=== PATIENT | female | born 1945 | race Caucasian/White ===

== ENCOUNTER 2018-05-23 13:51 | Inpatient (IN) ==
--- NOTE | 2018-05-23 14:05 | ED ---
HPI General Chief Complaint: Neuro Symptoms/Deficit Stated Complaint: medical Time Seen by Provider: 05/23/18 13:52 Source: patient and family Mode of arrival: wheelchair Limitations: language barrier (aphasia, dysarthria) History of Present Illness HPI Narrative: 72-year-old female that presents to the ED for evaluation of possible stroke. Per patient and who provides most of the information less than 20 minutes before coming patient was complaining that she was having a "migraine" and did not feel right so she went to the bathroom. Apparently when she was in the bathroom she had trouble getting her pants and underwear off and could not do it on her own. She called for her for assistance in her 's are noted that she was having trouble speaking and she had a little difficulty using her hands. He took her here for get evaluated as there were concerned for stroke. Per patient she does not have any history of CVA in the past. She does have a history of kidney disease stage II as well as a history of high blood pressure. She does take Plavix. She denies any trauma or injury. Per symptoms started 20 minutes ago. She denies any history of this in the past. No recent travel. No allergies to medication. Patient herself is somewhat hard to assess as she does appear to have bad aphasia and dysarthria and has difficulty speaking. She does appear to be somewhat drowsy as well. Related Data Home Medications Medication Instructions Recorded Confirmed amlodipine 2.5 mg PO DAILY 05/23/18 05/23/18 amlodipine 5 mg PO HS 05/23/18 05/23/18 atorvastatin 20 mg PO HS 05/23/18 05/23/18 cholecalciferol (vitamin D3) 2,000 unit PO DAILY 05/23/18 05/23/18 [Vitamin D3] clopidogrel 75 mg PO DAILY 05/23/18 05/23/18 cyanocobalamin (vitamin B-12) 1,000 mcg PO DAILY 05/23/18 05/23/18 [Vitamin B-12] lisinopril 40 mg PO DAILY 05/23/18 05/23/18 Allergies Allergy/AdvReac Type Severity Reaction Status Date / Time alteplase [From Activase] Allergy Severe Swelling Verified 05/25/18 12:21 of Lip/Tongue/Throat Iodinated Contrast- Oral and Allergy Severe Swelling Verified 05/25/18 12:21 IV Dye of [Contrast] Lip/Tongue/Throat Review of Systems ROS: all other systems reviewed are negative [facility] History History Provided By: Patient and Family Member Medical History Medical History CAD (coronary artery disease) (Acute) HTN (hypertension) (Acute) Hard of hearing (Acute) Hypercholesterolemia (Acute) Social History Social History Substance History: No History of Abuse Second Hand Smoke Exposure: Yes Smoking Status: Current every day smoker Tobacco Type: Cigarettes How Often Do You Have a Drink Containing Alcohol: 2 to 3 times a week Recent Travel in [facility] within the Last 8 Weeks: Yes Recent Out of Country Travel within the Last 8 Weeks: No Exam Narrative Exam Narrative: GENERAL: Drowsy but well-groomed SKIN: Focused skin assessment warm/dry. HEAD: Atraumatic. Normocephalic. EYES: Pupils equal and round 4 mm reactive to light and accommodation. No scleral icterus. No injection or drainage. ENT: No nasal bleeding or discharge. Mucous membranes pink and moist. Tongue appears to be midline. No uvula deviation. NECK: Trachea midline. No JVD. CARDIOVASCULAR: Regular rate and rhythm. No murmur appreciated. RESPIRATORY: No accessory muscle use. Clear to auscultation. Breath sounds equal bilaterally. GASTROINTESTINAL: Abdomen soft, non-tender, nondistended. Hepatic and splenic margins not palpable. MUSCULOSKELETAL: No obvious deformities. No clubbing. No cyanosis. No edema. Full range of motion of the upper and lower extremities bilaterally. 2+ pulses bilaterally. Patient does have what appears to be drift on the right side with very slight weakness compared to the left on the right compared to the left. Finger to nose status appears to be intact. No obvious facial droop noted. No lumbar, thoracic, cervical spine tenderness to palpation. NEUROLOGICAL: Awake and alert and oriented 4. No obvious cranial nerve deficits. Motor grossly within normal limits. Slurred speech with expressive aphasia. PSYCHIATRIC: Appropriate mood and affect; insight and judgment normal. Procedures Intubation Time Out Performed: No Sedative: etomidate Mg Given: 20 Paralytic: succinylcholine Mg Given: 100 Laryngoscope: fiber optic video scope (CMAC-4) ET Tube Size: 8 ET Tube Uncuffed: Yes Patient Tolerated Procedure: other (Bleeding, Traumatic intubation.) Intubation Complications: difficult intubation and hypoxia Additional Comments: I Dr. Medina was called by Dr. Espinal orders to assist in a critical airway. This is a 72-year-old female who is received TPA, IV contrast today as part of a stroke workup. I arrived P find the patient being bag valve mask by Dr. Qiu and respiratory with a saturation in the mid 40s peer. She was able to be [id number] back up to 90 prior to my intubation attempt. Her tongue is massively swollen protruding through her mouth, glide scope was inserted, her arytenoids were also swollen, she had some subglottal swelling as well. With a maximum amount of effort an ET tube was able to be slid past her tongue, and it was visualized going through the vocal cords by myself and Dr. rosado on glide scope monitoring. She did have some bleeding afterwards and has already received a bolus dose of TPA today. Patient also prior to Intubation was given Versed 2 mg IV and morphine 4 mg IV. All these medications were given by Dr. espinal. Course Reevaluation(s) Reevaluation #1: The patient has suddenly developed swelling of the right. I have ordered Benadryl, Pepcid and Decadron. Time: 15:32 Reevaluation #2: The swelling on the right side of her tongue has become acutely worse and is threatening to completely occlude her airway. The decision was made to proceed with a semi-elective intubation. The patient was aware of the plan and was in agreement. Her was at the bedside when we were discussing airway management. Of note, the patient's right-sided weakness seem to be improved prior to giving her RSI medications. Time: 16:49 Initial Documented Vital Signs Temperature 97.5 F L 05/23/18 13:56 Pulse Rate 75 05/23/18 13:56 Respiratory Rate 21 05/23/18 13:56 Blood Pressure 174/97 H 05/23/18 13:56 Pulse Oximetry 98 05/23/18 13:56 Last Documented Vital Signs Temperature 98.3 F 05/25/18 08:00 Pulse Rate 72 05/25/18 10:00 Respiratory Rate 15 05/25/18 11:50 Blood Pressure 183/77 H 05/25/18 08:00 Pulse Oximetry 98 05/25/18 11:50 Critical Care Time Critical Care Time: Yes Total Critical Care Time: 60 Attestation: Time to perform other separately billable procedures was not included in the critical care time. My time did not include minutes spent treating any other patients simultaneously or on activities that did not directly contribute to the patient's treatment. The services I provided to this patient were to treat and/or prevent clinically significant deterioration due to acute stroke I provided critical care services requiring my management, as noted below: Chart data review, documentation time, medication orders and management, vital sign assessments/reviewing monitor data, ordering and reviewing lab tests, ordering and interpreting/reviewing x-rays and diagnostic studies, care of the patient and discussion of the patient with the admitting physicians The patient subsequently developed significant angioedema of the tongue requiring airway management. This required further critical care. NIH Stroke Scale NIH Stroke Scale Level of Consciousness: 1-Drowsy Orientation Questions: 0-Answers both correct Responds to Commands: 0-Both tasks correct Gaze Eye Movement: 0-Horizontal movement WNL Visual Hanley: 0-No visual field defect Facial Movement: 0-Normal Motor Functions Arm LEFT: 0-No drift Motor Functions Arm RIGHT: 1-Drift before 10 seconds Motor Functions Leg LEFT: 0-No drift Motor Functions Leg RIGHT: 1-Drift before 5 seconds Limb Ataxia: 0-No ataxia Sensory Loss: 0-No sensory loss Best Language: 1-Mild aphasia Articulation: 1-Mild dysarthia Extinction or Inattention Sensory: 0-Absent Total: 5 Medical Decision Making KIMBERLI Attestation KIMBERLI supervised visit: Yes Attestation: I, Dr. Espinal, have reviewed the advance practice practitioner's documentation and am in agreement, met with the patient face to face, made the diagnosis, and the medical decision making was done by me. *My assessment and Findings: The patient is having some dysarthria as well as right sided weakness. A stroke alert was called. The case was discussed with Dr. Travis who recommended TPA. TPA has been ordered. He also recommended a CTA of the brain. That was also ordered. The staff was subsequently able to learn that she has a history of renal insufficiency. Her creatinine today is 1.3. I believe that the benefits of doing a CTA outweigh the risks. CTA will be done. MDM Narrative Medical decision making narrative: 72-year-old female that presents to the ED for evaluation of dysarthria, expressive aphasia as well as weakness to the right side of the body. Patient was properly examined by me initially and after evaluated the patient I immediately got a whole my attending Dr Sethi and made her aware of the patient's physical findings and she herself went to evaluate the patient and called a stroke alert at 1401. Stroke alert was called labs and imaging were ordered by me. My attending spoke with Dr. Travis at 1402 who recommends TPA ECT negative. My attending took over case. He will come here and evaluate the patient. Initial CT scan did not show any sign of bleeding and per my attendings and Dr. Travis's recommendation TPA was given at bedside. Please refer to my attendings note. Medical Screen Exam Complete: Yes Emergency Medical Condition: Yes Differential Diagnosis Differential Diagnosis: CVA versus ACS versus ischemic stroke versus hemorrhagic stroke versus anxiety versus a typical migraine Medical Records Medical records reviewed: Yes I reviewed the patient's medical records. Lab Data Lab results reviewed: Yes I reviewed the patient's lab results. Result diagrams: 05/25/18 04:16 05/25/18 04:16 Lab Results 05/23/18 05/23/18 05/23/18 Range/Units 14:05 14:05 14:05 WBC 7.7 (4.0-11.0) th/mm3 RBC 4.00 (4.00-5.30) mil/mm3 Hgb 13.3 (11.6-15.3) gm/dL POC Hgb (Calc) 12.2 (11.6-15.3) g/dL Hct 38.7 (35.0-46.0) % POC Hct 36.0 (35-46.0) % MCV 96.8 (80.0-100.0) fL MCH 33.2 (27.0-34.0) pg MCHC 34.3 (32.0-36.0) % RDW 12.8 (11.6-17.2) % Plt Count 269 (150-450) th/mm3 MPV 8.5 (7.0-11.0) fL Neut % (Auto) 75.7 H (16.0-70.0) % Lymph % (Auto) 16.0 (9.0-44.0) % Gibson % (Auto) 3.7 (0.0-8.0) % Eos % (Auto) 3.2 (0.0-4.0) % Baso % (Auto) 1.4 (0.0-2.0) % Neut # (Auto) 5.8 (1.8-7.7) th/mm3 Lymph # (Auto) 1.2 (1.0-4.8) th/mm3 Gibson # (Auto) 0.3 (0.0-0.9) th/mm3 Eos # (Auto) 0.2 (0.0-0.4) th/mm3 Baso # (Auto) 0.1 (0.0-0.2) th/mm3 WBC Differential . Differential Comment Auto diff final PT 10.6 (9.8-11.6) sec INR 1.0 Ratio APTT 25.8 (24.3-30.1) sec Fibrinogen 405 H (227-377) mg/dL Puncture Site Patient Temperature O2 Saturation (90-100) % ABG pH (7.380-7.420) ABG pCO2 (38-42) mmHg ABG pO2 (61-120) mmHg ABG HCO3 (22-26) mmol/L ABG O2 Content (12.0-20.0) Vol % ABG Base Excess (-2-2) mmol/L ABG Methemoglobin (0-2) % D[place] Test Hemoglobin (12.0-16.0) G/DL Carboxyhemoglobin (0-4) % O2 Delivery Device Vent Setting Inspired O2 % Critical Value POC Sodium 138 (137-144) mmol/L Sodium (136-145) meq/L POC Potassium 4.2 (3.6-5.0) mmol/L Potassium (3.5-5.1) meq/L POC Chloride 104 (102-111) mmol/L Chloride (98-107) meq/L Carbon Dioxide (21.0-32.0) meq/L Anion Gap (5-15) meq/L POC BUN 20 (5-21) mg/dL BUN (7-18) mg/dL Creatinine (0.50-1.00) mg/dL POC Creatinine 1.3 (0.6-1.3) mg/dL Estimated GFR (>89) mL/min POC Glucose 172 H (68-110) mg/dL Random Glucose (74-106) mg/dL Hemoglobin A1c (4.3-6.0) % Lactic Acid (0.4-2.0) mmol/L Calcium (8.5-10.1) mg/dL Phosphorus (2.5-4.9) mg/dL Magnesium (1.5-2.5) mg/dL Total Bilirubin (0.2-1.0) mg/dL AST (15-37) U/L ALT (10-53) U/L Alkaline Phosphatase (45-117) U/L Total Creatine Kinase 43 (26-192) U/L Troponin I Less than 0.02 L (0.02-0.05) ng/mL Total Protein (6.4-8.2) g/dL Albumin (3.4-5.0) g/dL Triglycerides (42-150) mg/dL Cholesterol (120-200) mg/dL LDL Cholesterol, Calc (0-99) mg/dL HDL Cholesterol (40.0-60.0) mg/dL Cholesterol/HDL Ratio Ratio Beta HCG, Quant Less than 1 (0-5) mIU/mL Urine Color (Yellw/Straw) Urine Clarity (Clear) Urine pH (5.0-8.5) Ur Specific [place] (1.002-1.035) Urine Protein (Neg-Trace) mg/dL Urine Glucose (UA) (Negative) mg/dL Urine Ketones (Negative) mg/dL Urine Occult Blood (Negative) Urine Nitrate (Negative) Urine Bilirubin (Negative) Urine Urobilinogen (Less than 2) mg/dL Ur Leukocyte Esterase (Negative) Urine WBC (0-5) /hpf Ur Squamous Epith Cells (0-5) /hpf Micro UA Comment Ur Microscopic Review Urine Culture Comments Nasal Screen MRSA (PCR) (Negative) Urine Opiates Screen (Neg) Ur Barbiturates Screen (Neg) Ur Amphetamines Screen (Neg) U Benzodiazepines Scrn (Neg) Urine Cocaine Screen (Neg) U Cannabinoids Screen (Neg) Blood Type Antibody Screen 05/23/18 05/23/18 05/23/18 Range/Units 14:05 14:05 14:05 WBC (4.0-11.0) th/mm3 RBC (4.00-5.30) mil/mm3 Hgb (11.6-15.3) gm/dL POC Hgb (Calc) (11.6-15.3) g/dL Hct (35.0-46.0) % POC Hct (35-46.0) % MCV (80.0-100.0) fL MCH (27.0-34.0) pg MCHC (32.0-36.0) % RDW (11.6-17.2) % Plt Count (150-450) th/mm3 MPV (7.0-11.0) fL Neut % (Auto) (16.0-70.0) % Lymph % (Auto) (9.0-44.0) % Gibson % (Auto) (0.0-8.0) % Eos % (Auto) (0.0-4.0) % Baso % (Auto) (0.0-2.0) % Neut # (Auto) (1.8-7.7) th/mm3 Lymph # (Auto) (1.0-4.8) th/mm3 Gibson # (Auto) (0.0-0.9) th/mm3 Eos # (Auto) (0.0-0.4) th/mm3 Baso # (Auto) (0.0-0.2) th/mm3 WBC Differential Differential Comment PT (9.8-11.6) sec INR Ratio APTT (24.3-30.1) sec Fibrinogen (227-377) mg/dL Puncture Site Patient Temperature O2 Saturation (90-100) % ABG pH (7.380-7.420) ABG pCO2 (38-42) mmHg ABG pO2 (61-120) mmHg ABG HCO3 (22-26) mmol/L ABG O2 Content (12.0-20.0) Vol % ABG Base Excess (-2-2) mmol/L ABG Methemoglobin (0-2) % Duglas Test Hemoglobin (12.0-16.0) G/DL Carboxyhemoglobin (0-4) % O2 Delivery Device Vent Setting Inspired O2 % Critical Value POC Sodium (137-144) mmol/L Sodium (136-145) meq/L POC Potassium (3.6-5.0) mmol/L Potassium (3.5-5.1) meq/L POC Chloride (102-111) mmol/L Chloride (98-107) meq/L Carbon Dioxide (21.0-32.0) meq/L Anion Gap (5-15) meq/L POC BUN (5-21) mg/dL BUN (7-18) mg/dL Creatinine (0.50-1.00) mg/dL POC Creatinine (0.6-1.3) mg/dL Estimated GFR (>89) mL/min POC Glucose (68-110) mg/dL Random Glucose (74-106) mg/dL Hemoglobin A1c 5.9 (4.3-6.0) % Lactic Acid (0.4-2.0) mmol/L Calcium (8.5-10.1) mg/dL Phosphorus (2.5-4.9) mg/dL Magnesium (1.5-2.5) mg/dL Total Bilirubin (0.2-1.0) mg/dL AST (15-37) U/L ALT (10-53) U/L Alkaline Phosphatase (45-117) U/L Total Creatine Kinase (26-192) U/L Troponin I (0.02-0.05) ng/mL Total Protein (6.4-8.2) g/dL Albumin (3.4-5.0) g/dL Triglycerides 392 H (42-150) mg/dL Cholesterol 157 (120-200) mg/dL LDL Cholesterol, Calc 39 (0-99) mg/dL HDL Cholesterol 39.7 L (40.0-60.0) mg/dL Cholesterol/HDL Ratio 3.95 Ratio Beta HCG, Quant (0-5) mIU/mL Urine Color (Yellw/Straw) Urine Clarity (Clear) Urine pH (5.0-8.5) Ur Specific [place] (1.002-1.035) Urine Protein (Neg-Trace) mg/dL Urine Glucose (UA) (Negative) mg/dL Urine Ketones (Negative) mg/dL Urine Occult Blood (Negative) Urine Nitrate (Negative) Urine Bilirubin (Negative) Urine Urobilinogen (Less than 2) mg/dL Ur Leukocyte Esterase (Negative) Urine WBC (0-5) /hpf Ur Squamous Epith Cells (0-5) /hpf Micro UA Comment Ur Microscopic Review Urine Culture Comments Nasal Screen MRSA (PCR) (Negative) Urine Opiates Screen (Neg) Ur Barbiturates Screen (Neg) Ur Amphetamines Screen (Neg) U Benzodiazepines Scrn (Neg) Urine Cocaine Screen (Neg) U Cannabinoids Screen (Neg) Blood Type O Positive Antibody Screen Negative 05/23/18 05/23/18 05/23/18 Range/Units 14:32 14:34 18:23 WBC (4.0-11.0) th/mm3 RBC (4.00-5.30) mil/mm3 Hgb (11.6-15.3) gm/dL POC Hgb (Calc) (11.6-15.3) g/dL Hct (35.0-46.0) % POC Hct (35-46.0) % MCV (80.0-100.0) fL MCH (27.0-34.0) pg MCHC (32.0-36.0) % RDW (11.6-17.2) % Plt Count (150-450) th/mm3 MPV (7.0-11.0) fL Neut % (Auto) (16.0-70.0) % Lymph % (Auto) (9.0-44.0) % Gibson % (Auto) (0.0-8.0) % Eos % (Auto) (0.0-4.0) % Baso % (Auto) (0.0-2.0) % Neut # (Auto) (1.8-7.7) th/mm3 Lymph # (Auto) (1.0-4.8) th/mm3 Gibson # (Auto) (0.0-0.9) th/mm3 Eos # (Auto) (0.0-0.4) th/mm3 Baso # (Auto) (0.0-0.2) th/mm3 WBC Differential Differential Comment PT (9.8-11.6) sec INR Ratio APTT (24.3-30.1) sec Fibrinogen (227-377) mg/dL Puncture Site Patient Temperature O2 Saturation (90-100) % ABG pH (7.380-7.420) ABG pCO2 (38-42) mmHg ABG pO2 (61-120) mmHg ABG HCO3 (22-26) mmol/L ABG O2 Content (12.0-20.0) Vol % ABG Base Excess (-2-2) mmol/L ABG Methemoglobin (0-2) % [place] Test Hemoglobin (12.0-16.0) G/DL Carboxyhemoglobin (0-4) % O2 Delivery Device Vent Setting Inspired O2 % Critical Value POC Sodium (137-144) mmol/L Sodium (136-145) meq/L POC Potassium (3.6-5.0) mmol/L Potassium (3.5-5.1) meq/L POC Chloride (102-111) mmol/L Chloride (98-107) meq/L Carbon Dioxide (21.0-32.0) meq/L Anion Gap (5-15) meq/L POC BUN (5-21) mg/dL BUN (7-18) mg/dL Creatinine (0.50-1.00) mg/dL POC Creatinine (0.6-1.3) mg/dL Estimated GFR (>89) mL/min POC Glucose 236 H (68-110) mg/dL Random Glucose (74-106) mg/dL Hemoglobin A1c (4.3-6.0) % Lactic Acid (0.4-2.0) mmol/L Calcium (8.5-10.1) mg/dL Phosphorus (2.5-4.9) mg/dL Magnesium (1.5-2.5) mg/dL Total Bilirubin (0.2-1.0) mg/dL AST (15-37) U/L ALT (10-53) U/L Alkaline Phosphatase (45-117) U/L Total Creatine Kinase (26-192) U/L Troponin I (0.02-0.05) ng/mL Total Protein (6.4-8.2) g/dL Albumin (3.4-5.0) g/dL Triglycerides (42-150) mg/dL Cholesterol (120-200) mg/dL LDL Cholesterol, Calc (0-99) mg/dL HDL Cholesterol (40.0-60.0) mg/dL Cholesterol/HDL Ratio Ratio Beta HCG, Quant (0-5) mIU/mL Urine Color Straw (Yellw/Straw) Urine Clarity Clear (Clear) Urine pH 5.0 (5.0-8.5) Ur Specific [place] 1.016 (1.002-1.035) Urine Protein Negative (Neg-Trace) mg/dL Urine Glucose (UA) Negative (Negative) mg/dL Urine Ketones Negative (Negative) mg/dL Urine Occult Blood Negative (Negative) Urine Nitrate Negative (Negative) Urine Bilirubin Negative (Negative) Urine Urobilinogen Less than 2 (Less than 2) mg/dL Ur Leukocyte Esterase Negative (Negative) Urine WBC Less than 1 (0-5) /hpf Ur Squamous Epith Cells <1 (0-5) /hpf Micro UA Comment Cath-culture not ind Ur Microscopic Review Not Reportable Urine Culture Comments Cath-cult not ind Nasal Screen MRSA (PCR) (Negative) Urine Opiates Screen Neg (Neg) Ur Barbiturates Screen Neg (Neg) Ur Amphetamines Screen Neg (Neg) U Benzodiazepines Scrn Neg (Neg) Urine Cocaine Screen Neg (Neg) U Cannabinoids Screen Neg (Neg) Blood Type Antibody Screen 05/23/18 05/23/18 05/24/18 Range/Units 18:25 19:03 19:00 WBC 17.2 H (4.0-11.0) th/mm3 RBC 3.86 L (4.00-5.30) mil/mm3 Hgb 12.5 (11.6-15.3) gm/dL POC Hgb (Calc) (11.6-15.3) g/dL Hct 37.7 (35.0-46.0) % POC Hct (35-46.0) % MCV 97.5 (80.0-100.0) fL MCH 32.4 (27.0-34.0) pg MCHC 33.2 (32.0-36.0) % RDW 13.3 (11.6-17.2) % Plt Count 280 (150-450) th/mm3 MPV 8.7 (7.0-11.0) fL Neut % (Auto) 95.7 H (16.0-70.0) % Lymph % (Auto) 2.0 L (9.0-44.0) % Gibson % (Auto) 2.0 (0.0-8.0) % Eos % (Auto) 0.0 (0.0-4.0) % Baso % (Auto) 0.3 (0.0-2.0) % Neut # (Auto) 16.4 H (1.8-7.7) th/mm3 Lymph # (Auto) 0.3 L (1.0-4.8) th/mm3 Gibson # (Auto) 0.4 (0.0-0.9) th/mm3 Eos # (Auto) 0.0 (0.0-0.4) th/mm3 Baso # (Auto) 0.1 (0.0-0.2) th/mm3 WBC Differential . Differential Comment Auto diff final PT (9.8-11.6) sec INR Ratio APTT (24.3-30.1) sec Fibrinogen (227-377) mg/dL Puncture Site Right radial Patient Temperature 98.6 O2 Saturation 97 (90-100) % ABG pH 7.40 (7.380-7.420) ABG pCO2 35 L (38-42) mmHg ABG pO2 200 H (61-120) mmHg ABG HCO3 22 (22-26) mmol/L ABG O2 Content 17.3 (12.0-20.0) Vol % ABG Base Excess -2.4 L (-2-2) mmol/L ABG Methemoglobin 1.2 (0-2) % Duglas Test Present Hemoglobin 12.4 (12.0-16.0) G/DL Carboxyhemoglobin 1.5 (0-4) % O2 Delivery Device Ventilator Vent Setting Prvc/ac Inspired O2 50 % Critical Value No POC Sodium (137-144) mmol/L Sodium (136-145) meq/L POC Potassium (3.6-5.0) mmol/L Potassium (3.5-5.1) meq/L POC Chloride (102-111) mmol/L Chloride (98-107) meq/L Carbon Dioxide (21.0-32.0) meq/L Anion Gap (5-15) meq/L POC BUN (5-21) mg/dL BUN (7-18) mg/dL Creatinine (0.50-1.00) mg/dL POC Creatinine (0.6-1.3) mg/dL Estimated GFR (>89) mL/min POC Glucose (68-110) mg/dL Random Glucose (74-106) mg/dL Hemoglobin A1c (4.3-6.0) % Lactic Acid (0.4-2.0) mmol/L Calcium (8.5-10.1) mg/dL Phosphorus (2.5-4.9) mg/dL Magnesium (1.5-2.5) mg/dL Total Bilirubin (0.2-1.0) mg/dL AST (15-37) U/L ALT (10-53) U/L Alkaline Phosphatase (45-117) U/L Total Creatine Kinase (26-192) U/L Troponin I (0.02-0.05) ng/mL Total Protein (6.4-8.2) g/dL Albumin (3.4-5.0) g/dL Triglycerides (42-150) mg/dL Cholesterol (120-200) mg/dL LDL Cholesterol, Calc (0-99) mg/dL HDL Cholesterol (40.0-60.0) mg/dL Cholesterol/HDL Ratio Ratio Beta HCG, Quant (0-5) mIU/mL Urine Color (Yellw/Straw) Urine Clarity (Clear) Urine pH (5.0-8.5) Ur Specific [place] (1.002-1.035) Urine Protein (Neg-Trace) mg/dL Urine Glucose (UA) (Negative) mg/dL Urine Ketones (Negative) mg/dL Urine Occult Blood (Negative) Urine Nitrate (Negative) Urine Bilirubin (Negative) Urine Urobilinogen (Less than 2) mg/dL Ur Leukocyte Esterase (Negative) Urine WBC (0-5) /hpf Ur Squamous Epith Cells (0-5) /hpf Micro UA Comment Ur Microscopic Review Urine Culture Comments Nasal Screen MRSA (PCR) Not detected (Negative) Urine Opiates Screen (Neg) Ur Barbiturates Screen (Neg) Ur Amphetamines Screen (Neg) U Benzodiazepines Scrn (Neg) Urine Cocaine Screen (Neg) U Cannabinoids Screen (Neg) Blood Type Antibody Screen 05/24/18 05/24/18 05/24/18 Range/Units 19:00 19:00 19:00 WBC (4.0-11.0) th/mm3 RBC (4.00-5.30) mil/mm3 Hgb (11.6-15.3) gm/dL POC Hgb (Calc) (11.6-15.3) g/dL Hct (35.0-46.0) % POC Hct (35-46.0) % MCV (80.0-100.0) fL MCH (27.0-34.0) pg MCHC (32.0-36.0) % RDW (11.6-17.2) % Plt Count (150-450) th/mm3 MPV (7.0-11.0) fL Neut % (Auto) (16.0-70.0) % Lymph % (Auto) (9.0-44.0) % [place] % (Auto) (0.0-8.0) % Eos % (Auto) (0.0-4.0) % Baso % (Auto) (0.0-2.0) % Neut # (Auto) (1.8-7.7) th/mm3 Lymph # (Auto) (1.0-4.8) th/mm3 [place] # (Auto) (0.0-0.9) th/mm3 Eos # (Auto) (0.0-0.4) th/mm3 Baso # (Auto) (0.0-0.2) th/mm3 WBC Differential Differential Comment PT 11.2 (9.8-11.6) sec INR 1.1 Ratio APTT 19.6 L D (24.3-30.1) sec Fibrinogen (227-377) mg/dL Puncture Site Patient Temperature O2 Saturation (90-100) % ABG pH (7.380-7.420) ABG pCO2 (38-42) mmHg ABG pO2 (61-120) mmHg ABG HCO3 (22-26) mmol/L ABG O2 Content (12.0-20.0) Vol % ABG Base Excess (-2-2) mmol/L ABG Methemoglobin (0-2) % [place] Test Hemoglobin (12.0-16.0) G/DL Carboxyhemoglobin (0-4) % O2 Delivery Device Vent Setting Inspired O2 % Critical Value POC Sodium (137-144) mmol/L Sodium 140 (136-145) meq/L POC Potassium (3.6-5.0) mmol/L Potassium 5.0 (3.5-5.1) meq/L POC Chloride (102-111) mmol/L Chloride 109 H (98-107) meq/L Carbon Dioxide 19.9 L (21.0-32.0) meq/L Anion Gap 11 (5-15) meq/L POC BUN (5-21) mg/dL BUN 32 H (7-18) mg/dL Creatinine 1.64 H (0.50-1.00) mg/dL POC Creatinine (0.6-1.3) mg/dL Estimated GFR 31 L (>89) mL/min POC Glucose (68-110) mg/dL Random Glucose 137 H (74-106) mg/dL Hemoglobin A1c (4.3-6.0) % Lactic Acid 4.2 H* (0.4-2.0) mmol/L Calcium 9.2 (8.5-10.1) mg/dL Phosphorus 4.4 (2.5-4.9) mg/dL Magnesium 2.1 (1.5-2.5) mg/dL Total Bilirubin 0.3 (0.2-1.0) mg/dL AST 17 (15-37) U/L ALT 21 (10-53) U/L Alkaline Phosphatase 87 (45-117) U/L Total Creatine Kinase (26-192) U/L Troponin I (0.02-0.05) ng/mL Total Protein 7.1 (6.4-8.2) g/dL Albumin 3.6 (3.4-5.0) g/dL Triglycerides (42-150) mg/dL Cholesterol (120-200) mg/dL LDL Cholesterol, Calc (0-99) mg/dL HDL Cholesterol (40.0-60.0) mg/dL Cholesterol/HDL Ratio Ratio Beta HCG, Quant (0-5) mIU/mL Urine Color (Yellw/Straw) Urine Clarity (Clear) Urine pH (5.0-8.5) Ur Specific [place] (1.002-1.035) Urine Protein (Neg-Trace) mg/dL Urine Glucose (UA) (Negative) mg/dL Urine Ketones (Negative) mg/dL Urine Occult Blood (Negative) Urine Nitrate (Negative) Urine Bilirubin (Negative) Urine Urobilinogen (Less than 2) mg/dL Ur Leukocyte Esterase (Negative) Urine WBC (0-5) /hpf Ur Squamous Epith Cells (0-5) /hpf Micro UA Comment Ur Microscopic Review Urine Culture Comments Nasal Screen MRSA (PCR) (Negative) Urine Opiates Screen (Neg) Ur Barbiturates Screen (Neg) Ur Amphetamines Screen (Neg) U Benzodiazepines Scrn (Neg) Urine Cocaine Screen (Neg) U Cannabinoids Screen (Neg) Blood Type Antibody Screen 05/25/18 05/25/18 Range/Units 04:16 04:16 WBC 18.3 H (4.0-11.0) th/mm3 RBC 3.36 L (4.00-5.30) mil/mm3 Hgb 11.0 L (11.6-15.3) gm/dL POC Hgb (Calc) (11.6-15.3) g/dL Hct 32.4 L (35.0-46.0) % POC Hct (35-46.0) % MCV 96.6 (80.0-100.0) fL MCH 32.6 (27.0-34.0) pg MCHC 33.8 (32.0-36.0) % RDW 13.5 (11.6-17.2) % Plt Count 244 (150-450) th/mm3 MPV 8.7 (7.0-11.0) fL Neut % (Auto) 95.7 H (16.0-70.0) % Lymph % (Auto) 1.9 L (9.0-44.0) % Gibson % (Auto) 2.3 (0.0-8.0) % Eos % (Auto) 0.0 (0.0-4.0) % Baso % (Auto) 0.1 (0.0-2.0) % Neut # (Auto) 17.5 H (1.8-7.7) th/mm3 Lymph # (Auto) 0.4 L (1.0-4.8) th/mm3 Gibson # (Auto) 0.4 (0.0-0.9) th/mm3 Eos # (Auto) 0.0 (0.0-0.4) th/mm3 Baso # (Auto) 0.0 (0.0-0.2) th/mm3 WBC Differential . Differential Comment Auto diff final PT (9.8-11.6) sec INR Ratio APTT (24.3-30.1) sec Fibrinogen (227-377) mg/dL Puncture Site Patient Temperature O2 Saturation (90-100) % ABG pH (7.380-7.420) ABG pCO2 (38-42) mmHg ABG pO2 (61-120) mmHg ABG HCO3 (22-26) mmol/L ABG O2 Content (12.0-20.0) Vol % ABG Base Excess (-2-2) mmol/L ABG Methemoglobin (0-2) % Duglas Test Hemoglobin (12.0-16.0) G/DL Carboxyhemoglobin (0-4) % O2 Delivery Device Vent Setting Inspired O2 % Critical Value POC Sodium (137-144) mmol/L Sodium 143 (136-145) meq/L POC Potassium (3.6-5.0) mmol/L Potassium 4.7 (3.5-5.1) meq/L POC Chloride (102-111) mmol/L Chloride 112 H (98-107) meq/L Carbon Dioxide 17.4 L (21.0-32.0) meq/L Anion Gap 14 (5-15) meq/L POC BUN (5-21) mg/dL BUN 34 H (7-18) mg/dL Creatinine 1.53 H (0.50-1.00) mg/dL POC Creatinine (0.6-1.3) mg/dL Estimated GFR 33 L (>89) mL/min POC Glucose (68-110) mg/dL Random Glucose 156 H (74-106) mg/dL Hemoglobin A1c (4.3-6.0) % Lactic Acid (0.4-2.0) mmol/L Calcium 8.3 L D (8.5-10.1) mg/dL Phosphorus (2.5-4.9) mg/dL Magnesium (1.5-2.5) mg/dL Total Bilirubin 0.2 (0.2-1.0) mg/dL AST 14 L (15-37) U/L ALT 20 (10-53) U/L Alkaline Phosphatase 73 (45-117) U/L Total Creatine Kinase (26-192) U/L Troponin I (0.02-0.05) ng/mL Total Protein 6.0 L D (6.4-8.2) g/dL Albumin 3.1 L (3.4-5.0) g/dL Triglycerides (42-150) mg/dL Cholesterol (120-200) mg/dL LDL Cholesterol, Calc (0-99) mg/dL HDL Cholesterol (40.0-60.0) mg/dL Cholesterol/HDL Ratio Ratio Beta HCG, Quant (0-5) mIU/mL Urine Color (Yellw/Straw) Urine Clarity (Clear) Urine pH (5.0-8.5) Ur Specific [place] (1.002-1.035) Urine Protein (Neg-Trace) mg/dL Urine Glucose (UA) (Negative) mg/dL Urine Ketones (Negative) mg/dL Urine Occult Blood (Negative) Urine Nitrate (Negative) Urine Bilirubin (Negative) Urine Urobilinogen (Less than 2) mg/dL Ur Leukocyte Esterase (Negative) Urine WBC (0-5) /hpf Ur Squamous Epith Cells (0-5) /hpf Micro UA Comment Ur Microscopic Review Urine Culture Comments Nasal Screen MRSA (PCR) (Negative) Urine Opiates Screen (Neg) Ur Barbiturates Screen (Neg) Ur Amphetamines Screen (Neg) U Benzodiazepines Scrn (Neg) Urine Cocaine Screen (Neg) U Cannabinoids Screen (Neg) Blood Type Antibody Screen Imaging Data Attestation: I personally reviewed and interpreted this imaging study as follows : Radiologist's impression: Chest X-Ray 05/23/18 14:00 CONCLUSION: Negative examination. Head CT 05/23/18 14:00 CONCLUSION: 1. Negative CT Head non contrast. Report was called by [Dr. Brown at 2:15 PM on May 23, [address] Espinal. ] Head CTA 05/23/18 14:00 CONCLUSION: 1. No high-grade stenosis or intracranial aneurysm or occlusion intracranially. 2. In the neck there is moderate to severe calcific plaque at the left carotid bulb, and severe calcific plaque at the origin of the right internal carotid artery. Neck CTA 05/23/18 14:00 CONCLUSION: 1. Atherosclerotic plaquing involving bilateral ICAs, which appear to be soft plaque without any significant stenosis. Head CT 05/24/18 00:00 CONCLUSION: Unremarkable study and not changed. Head MRI 05/24/18 00:00 CONCLUSION: 1. Acute stroke left parietal lobe without hemorrhage or mass effect. Chest X-Ray 05/25/18 05:00 CONCLUSION: 1. Underinflation with mild subsegmental atelectasis at the left lung base. Otherwise, stable appearance of the lungs. 2. Endotracheal tube is present with distal tip measuring approximately 3 cm from the nicole. ECG Data EKG Prior to Arrival: No Attestation: I personally reviewed and interpreted this ECG as follows: (EKG shows a sinus rhythm with a rate of 58. No STT wave changes.) Interpretation: EKG shows sinus bradycardia with a ventricular rate of 58, WV interval of 155 ms, no ST elevations. Read by me and attending. Discharge Plan Discharge Disposition Patient Disposition: 30 Still Patient Discharge Details Diagnosis: Acute CVA (cerebrovascular accident), Received intravenous tissue plasminogen activator (tPA) in emergency department, Anaphylaxis Physicians Team ED Provider: Bita Espinal ED Midlevel Provider: Fernando Mustafa Primary Care Provider: Eladio Caruso Attending Provider: Luis F Anderson Other Providers: Edil Travis ; Sachin Rosa Status ED Status: Left Department Discharge Information Discharge Date/Time: 05/23/18 17:51
--- NOTE | 2018-05-23 14:18 | CT ---
EXAM DATE: 05/23/2018 2:13 PM EDT AGE/SEX: 72 years / Female INDICATIONS: Stroke alert, right sided weakness. CLINICAL DATA: This is the patient's initial encounter. Patient reports that signs and symptoms have been present for 1 day and indicates a pain score of Nonresponsive. MEDICAL/SURGICAL HISTORY: . stage II kidney disease None. RADIATION DOSE: 56.35 CTDI (mGy) COMPARISON: No prior exams available for comparison. TECHNIQUE: CT of the head without contrast. Using automated exposure control and adjustment of the mA and/or kV according to patient size, radiation dose was kept as low as reasonably achievable to ob tain optimal diagnostic quality images. DICOM format image data is available electronically for revi ew and comparison. FINDINGS: The CSF spaces, ventricles and cisterns are of normal size and configuration. No evidence of intracra nial hemorrhage, mass or infarction. Osseous structures are intact. CONCLUSION: 1. Negative CT Head non contrast. Report was called by [Dr. Brown at 2:15 PM on May 23, [address] Sarkar. ] Electronically signed by: Skip Brown MD 05/23/2018 2:17 PM EDT
[2018-05-23 14:36] LABS: Baso # (Auto) 0.1 th/mm3 (0.0-0.2); Baso % (Auto) 1.4 % (0.0-2.0); Eos # (Auto) 0.2 th/mm3 (0.0-0.4); Eos % (Auto) 3.2 % (0.0-4.0); Hematocrit 38.7 % (35.0-46.0); Hemoglobin 13.3 gm/dL (11.6-15.3); Lymph # (Auto) 1.2 th/mm3 (1.0-4.8); Mean Corpuscular HGB Conc 34.3 % (32.0-36.0); Mean Corpuscular Hemoglobin 33.2 pg (27.0-34.0); Mean Corpuscular Volume 96.8 fL (80.0-100.0); Mean Platelet Volume 8.5 fL (7.0-11.0); Mono # (Auto) 0.3 th/mm3 (0.0-0.9); Mono % (Auto) 3.7 % (0.0-8.0); Neut # (Auto) 5.8 th/mm3 (1.8-7.7); Neut % (Auto) 75.7 % (16.0-70.0); Platelet Count 269 th/mm3 (150-450); Red Cell Distribution Width 12.8 % (11.6-17.2); White Blood Count 7.7 th/mm3 (4.0-11.0)
[2018-05-23] MEDS ORDERED: Alteplase Bolus 9 MG/9 ML Syringe IV.PUSH ONE (14:37)
[2018-05-23] MEDS ORDERED: ALTEPLASE DRIP IV.SIG ONE (14:37)
[2018-05-23] MEDS: Sod Chloride 0.9% Inj 1,000 ML IV.CONT SCH (14:39)
--- NOTE | 2018-05-23 14:46 | XR ---
EXAM DATE: 05/23/2018 2:41 PM EDT AGE/SEX: 72 years / Female INDICATIONS: Stroke alert. CLINICAL DATA: This is the patient's initial encounter. Patient reports that signs and symptoms have been present for 1 day and indicates a pain score of Nonresponsive. MEDICAL/SURGICAL HISTORY: . Stage II kidney disease. None. COMPARISON: [facility] [place], CHEST SINGLE AP, 01/31/2015. . FINDINGS: A single AP view of the chest demonstrates the lungs to be symmetrically aerated without evidence of mass, infiltrate or effusion. The cardiomediastinal contours are unremarkable. Osseous structures a re intact. CONCLUSION: Negative examination. Electronically signed by: Skip Brown MD 05/23/2018 2:45 PM EDT
--- NOTE | 2018-05-23 14:46 | CT ---
EXAM DATE: 05/23/2018 2:41 PM EDT AGE/SEX: 72 years / Female INDICATIONS: Stroke alert; right sided weakness. CLINICAL DATA: This is the patient's initial encounter. Patient reports that signs and symptoms have been present for 1 day and indicates a pain score of Nonresponsive. MEDICAL/SURGICAL HISTORY: Non-responsive. Non-responsive. RADIATION DOSE: 9.05 CTDI (mGy) ; Combined studies COMPARISON: [facility] [place], CT HEAD W/O CONTRAST, 05/23/2018. . TECHNIQUE: Volumetric scanning was performed using a multi-row detector CT scanner during bolus infu tabitha of 50 ml Visipaque 320 (iodixanol) nonionic water-soluble contrast as a single exam dose. The data was post processed with a variety of visualization algorithms including full volume maximum int ensity projection, multi-planar sliding thin slab reformation, curved planar reformation, and surface rendering techniques. Using automated exposure control and adjustment of the mA and/or kV according to patient size, radiation dose was kept as low as reasonably achievable to obtain optimal diagnosti c quality images. DICOM format image data is available electronically for review and comparison. FINDINGS: There is excellent visualization of the major intracranial arteries out to the second-order branch ve ssels. There is no evidence for aneurysm, vessel truncation or stenosis, and no evidence for vascula r malformation. 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 CONCLUSION: 1. No high-grade stenosis or intracranial aneurysm or occlusion intracranially. 2. In the neck there is moderate to severe calcific plaque at the left carotid bulb, and severe calc ific plaque at the origin of the right internal carotid artery. Electronically signed by: Skip Brown MD 05/23/2018 2:45 PM EDT
[2018-05-23 14:47] LABS: Activated Partial Thrombo Time 25.8 sec (24.3-30.1); Prothrombin Time 10.6 sec (9.8-11.6)
[2018-05-23 15:20] LABS: Bilirubin,Urine Negative (Negative); Clarity,Urine Clear (Clear); Color,Urine Straw (Yellw/Straw); Glucose,Urine (UA) Negative (Negative); Leukocyte Esterase,Urine Negative (Negative); Nitrite,Urine Negative (Negative); Specific Gravity,Urine 1.016 (1.002-1.035); Squamous Epithelial Cell,Urine <1 /hpf (0-5)
[2018-05-23 15:26] LABS: Amphetamine Screen,Urine Neg (Neg); Barbiturate Screen,Urine Neg (Neg); Cannabinoid Screen,Urine Neg (Neg); Cocaine Screen,Urine Neg (Neg)
[2018-05-23] MEDS ORDERED: Dexamethasone Inj 20 MG/5 ML Vial IV.PUSH ONE (15:31)
[2018-05-23] MEDS ORDERED: Famotidine PF Inj 20 MG/2 ML Vial IV.PUSH ONE (15:31)
[2018-05-23] MEDS ORDERED: Etomidate Inj 40 MG/20 ML Vial IV.PUSH ONE (15:46)
[2018-05-23 15:47] LABS: Creatine Kinase 43 U/L (26-192)
[2018-05-23] MEDS ORDERED: Midazolam Inj 5 MG/ML 1 ML Vial ONE (15:47)
[2018-05-23] MEDS ORDERED: Succinylcholine Inj 200 MG/10 ML Vial ONE (15:47)
[2018-05-23 15:48] LABS: Opiate Screen,Urine Neg (Neg)
[2018-05-23] MEDS ORDERED: Morphine Inj 4 MG/ML Vial ONE (15:48)
--- NOTE | 2018-05-23 15:48 | CT ---
EXAM DATE: 05/23/2018 3:30 PM EDT AGE/SEX: 72 years / Female INDICATIONS: Stroke alert; right sided weakness. CLINICAL DATA: This is the patient's initial encounter. Patient reports that signs and symptoms have been present for 1 day and indicates a pain score of Nonresponsive. MEDICAL/SURGICAL HISTORY: Non-responsive. Non-responsive. RADIATION DOSE: 9.05 CTDI (mGy) ; Combined studies COMPARISON: No prior exams available for comparison. TECHNIQUE: Volumetric scanning was performed using a multirow detector CT scanner during bolus infus ion of 50 ml Visipaque 320 (iodixanol) nonionic water-soluble contrast as a cumulative dose for mult iple exams. The data was postprocessed with a variety of visualization algorithms including full-vo lume maximum intensity projection, multiplanar sliding thin-slab reformation, curved-planar reformati on, and surface-rendering techniques. Using automated exposure control and adjustment of the mA and/ or kV according to patient size, radiation dose was kept as low as reasonably achievable to obtain op timal diagnostic quality images. DICOM format image data is available electronically for review and comparison. Percent stenosis is calculated using the diameter of the stenotic region over the diameter of the nor mal distal internal carotid artery. FINDINGS: The takeoff of the major vessels appear intact except for mild atelectatic change. The left vertebral artery is dominant. There is moderate to severe atherosclerotic plaquing at the origin of the right ICA with a separate area of plaque distal to it which also demonstrates soft plaque. Maximum stenosis is on the order of 30%. There is also extensive atelectatic plaquing at the origin of the left ICA w ithout any significant stenosis and maximum area of narrowing on the order of 20%. There is also soft plaque distal to the origin. CONCLUSION: 1. Atherosclerotic plaquing involving bilateral ICAs, which appear to be soft plaque without any sig nificant stenosis. Electronically signed by: Kumar Kaufman MD 05/23/2018 3:47 PM EDT
[2018-05-23] MEDS: Propofol 1000 mg/100 ml Inj 1,000 MG/100 ML BOTTLE IV.CONT PRN ×2 (16:14→20:57)
[2018-05-23] MEDS ORDERED: Morphine Inj 4 MG/ML Vial IV.PUSH ONE (16:29)
[2018-05-23] MEDS ORDERED: Succinylcholine Inj 100 MG/5 ML Syringe IV.PUSH ONE (16:29)
[2018-05-23] MEDS ORDERED: Etomidate Inj 20 MG/10 ML Ampul IV.PUSH ONE (16:29)
[2018-05-23] MEDS ORDERED: Bisacodyl 10 MG Supp RECTAL PRN (16:58)
[2018-05-23] MEDS ORDERED: Acetaminophen 325 MG Tablet PO PRN ×2 (17:29→17:30)
--- NOTE | 2018-05-23 17:52 | P.HPCC ---
History of Present Illness Service: critical care medicine Primary Care Physician: Eladio Caruso MD Chief Complaint: Right sided weakness,speech disturbance History of Present Illness: HPI Narrative: 72-year-old female that presents to the ED for evaluation of possible stroke. Per patient and who provides most of the information less than 20 minutes before coming patient was complaining that she was having a "migraine" and did not feel right so she went to the bathroom. Apparently when she was in the bathroom she had trouble getting her pants and underwear off and could not do it on her own. She called for her for assistance in her 's are noted that she was having trouble speaking and she had a little difficulty using her hands. He took her here for get evaluated as there were concerned for stroke. Per patient she does not have any history of CVA in the past. She does have a history of kidney disease stage II as well as a history of high blood pressure. She does take Plavix. She denies any trauma or injury. Per symptoms started 20 minutes ago. She denies any history of this in the past. No recent travel. No allergies to medication. Patient herself is somewhat hard to assess as she does appear to have bad aphasia and dysarthria and has difficulty speaking. She does appear to be somewhat drowsy as well. Stroke alert called in ER, patient underwent CT head which was negative for bleed, , CTA brain and neuro eval by Dr. Travis and was administered TPA. Shortly after TPA administration she developed lip/ tongue swelling with difficulty breathing. Allergic reaction to TPA was suspected and patient was emergently intubated and placed on [facility] ventilation by ER physician. She did recieve Benadryl, IV Decadron 10mg IV, Pepcid and Epinephrine. Patient was accepted for admission by critical care and I evaluated patient in the ER. At that time she was sedated, orally intubated with significant tongue swelling noted. Inpatient Certification: I certify that the inpatient services were ordered in accordance with Medicare regulations governing the order. This includes certification that hospital inpatient services are reasonable and necessary and in the case of services not specified as inpatient-only under 42 CFR 419.22(n), that they are appropriately provided as inpatient services in accordance to with the 2-midnight benchmark under 43 CFR 412.3(e) Estimated Total Length of Stay (Days): 4 Plans for Post Hospital Care: Not yet determined Review of Systems unobtainable due to endotracheal tube PMFSH - History History Provided By: Patient, Family Member - Medical History Medical History: Medical History (Last Reviewed 05/23/18 @ 15:36 by JOSE Mccann) CAD (coronary artery disease) HTN (hypertension) Hard of hearing Hypercholesterolemia - Tobacco History Second Hand Smoke Exposure: Yes Tobacco Use In Past 30 Days: Yes Smoking Status: Current every day smoker Tobacco Type: Cigarettes - Alcohol History How Often Do You Have a Drink Containing Alcohol: 2 to 3 times a week - Substance Use History Substance History: No History of Abuse - Travel History Recent Travel in the [place] Within the Last 8 Weeks: Yes Recent Travel Out of the Country Within the Last 8 Weeks: No - Immunization History Tetanus Immunization: Unsure Hx Influenza Vaccine This Season: No Medications and Allergies Active Medications: Active Medications Acetaminophen (Tylenol) 650 mg PO Q6H PRN PRN Reason: PAIN 1-10 AND/OR FEVER >101F Acetaminophen (Tylenol) 650 mg PO Q6H PRN PRN Reason: PAIN 1-10 AND/OR FEVER >101F Al Hydroxide/Mg Hydroxide (Milk Of Magnbianca Liq) 30 ml PO Q12H PRN PRN Reason: Mild Constipation Albuterol (Albuterol Neb (Prn)) 2.5 mg NEB Q2HR NEB PRN PRN Reason: SHORTNESS OF BREATH/WHEEZING Albuterol (Albuterol Neb (Prn)) 2.5 mg NEB Q4HR NEB PRN PRN Reason: SHORTNESS OF BREATH Albuterol (Duoneb Neb (Yanet)) 1 ampul NEB Q6HR NEB YANET Bisacodyl (Dulcolax Supp) 10 mg RECTAL DAILY PRN PRN Reason: SEVERE CONSITIPATION Chlorhexidine Gluconate (Chlorhexidine 2% Cloth) 3 pack TOPICAL DAILY@0400 YANET Stop: 05/29/18 03:59 Chlorhexidine Gluconate (Chlorhexidine 2% Cloth) 3 pack TOPICAL DAILY@0400 PRN PRN Reason: Extra cloth needed Stop: 05/29/18 03:59 Famotidine (Pepcid) 20 mg PO BID YANET Famotidine (Pepcid Pf Inj) 20 mg IV.PUSH Q12HR YANET Sodium Chloride (Ns Inj) 1,000 mls @ 70 mls/hr IV.CONT .[id number] YANET Last Admin: 05/23/18 14:39 Dose: 70 mls/hr Propofol (Diprivan 1000 Mg/100 Ml Inj) 1,000 mg in 100 mls @ 2.073 mls/hr IV.CONT TITRATE PRN; Protocol PRN Reason: Per Protocol Last Titration: 05/23/18 16:58 Dose: 50 mcg/kg/min, 20.73 mls/hr Lactulose (Lactulose Liq) 30 ml PO DAILY PRN PRN Reason: SEVERE CONSITIPATION Senna/Docusate Sodium (Cat-Colace) 1 tab PO BID [facility] Sennosides (Senokot) 17.2 mg PO Q12H PRN PRN Reason: Moderate Constipation Sodium Chloride (Ns Flush) 2 ml IV.FLUSH BID YANET Sodium Chloride (Ns Flush) 2 ml IV.FLUSH PRN PRN PRN Reason: FLUSH AFTER USING IV ACCESS Sodium Chloride (Ns Flush) 2 ml IV.FLUSH BID YANET Sodium Chloride (Ns Flush) 2 ml IV.FLUSH PRN PRN PRN Reason: FLUSH AFTER USING IV ACCESS Allergies Allergy/AdvReac Type Severity Reaction Status Date / Time alteplase [From Activase] Allergy Severe Swelling Verified 05/23/18 17:01 of Lip/Tongue/Throat Iodinated Contrast- Oral and Allergy Severe Swelling Verified 05/23/18 17:01 IV Dye of [Contrast] Lip/Tongue/Throat Home Medications Medication Instructions Recorded Confirmed Type amlodipine 2.5 mg PO DAILY 05/23/18 05/23/18 History amlodipine 5 mg PO HS 05/23/18 05/23/18 History atorvastatin 20 mg PO HS 05/23/18 05/23/18 History cholecalciferol (vitamin D3) 2,000 unit PO DAILY 05/23/18 05/23/18 History [Vitamin D3] clopidogrel 75 mg PO DAILY 05/23/18 05/23/18 History cyanocobalamin (vitamin B-12) 1,000 mcg PO DAILY 05/23/18 05/23/18 History [Vitamin B-12] lisinopril 40 mg PO DAILY 05/23/18 05/23/18 History Results - Labs CBC & Chem 7: 05/23/18 14:05 Labs: Short CBC 05/23/18 Range/Units 14:05 WBC 7.7 (4.0-11.0) th/mm3 Hgb 13.3 (11.6-15.3) gm/dL Hct 38.7 (35.0-46.0) % Plt Count 269 (150-450) th/mm3 Cardiac Enzymes 05/23/18 Range/Units 14:05 Total Creatine Kinase 43 (26-192) U/L Troponin I Less than 0.02 L (0.02-0.05) ng/mL Urine 05/23/18 Range/Units 14:32 Urine Color Straw (Yellw/Straw) Urine Clarity Clear (Clear) Urine pH 5.0 (5.0-8.5) Ur Specific [place] 1.016 (1.002-1.035) Urine Protein Negative (Neg-Trace) mg/dL Urine Glucose (UA) Negative (Negative) mg/dL - Imaging Impressions Chest X-Ray 05/23/18 14:00 CONCLUSION: Negative examination. Head CT 05/23/18 14:00 CONCLUSION: 1. Negative CT Head non contrast. Report was called by [Dr. Brown at 2:15 PM on May 23, [address] Sarkar. ] Head CTA 05/23/18 14:00 CONCLUSION: 1. No high-grade stenosis or intracranial aneurysm or occlusion intracranially. 2. In the neck there is moderate to severe calcific plaque at the left carotid bulb, and severe calcific plaque at the origin of the right internal carotid artery. Neck CTA 05/23/18 14:00 CONCLUSION: 1. Atherosclerotic plaquing involving bilateral ICAs, which appear to be soft plaque without any significant stenosis. Exam Vital signs: Vital Signs 05/23/18 13:56 05/23/18 14:00 05/23/18 15:03 Temperature 97.5 F L Pulse Rate 75 Respiratory Rate 21 Blood Pressure 174/97 H Pulse Oximetry 98 99 98 05/23/18 16:19 Temperature Pulse Rate Respiratory Rate 16 Blood Pressure Pulse Oximetry 99 Intake & Output 05/22/18 05/23/18 05/23/18 18:59 06:59 18:59 Intake Total 56 / 56 Balance 56 / 56 Weight 69.1 kg Intake: IV 56 / 56 Activase Drip 56 MG In Bag/ / Syringe 1 EACH @ 56 mls/hr IV. SIG ONCE ONE Rx#:[id number] Narrative: HEENT/ Neuro: Sedated, orally intubated, no pallor, no icterus, tongue/ mucosa moist. Significant tongue swelling noted. Moving both upper and lower extremities. Difficult to do detailed neuro assessment due to sedation. Pupils bilaterally 3 mm reacting actively to light Neck: No JVD Chest/Pulm: on mech vent, good air entry bilaterally, no wheezing or crackles CVS: S1-S2 regular, no murmur GI/abdomen: soft, nontender, bowel sounds sluggish Extremities: warm bilaterally, no edema Caprini VTE Risk Assessment Caprini VTE Risk Assessment: Moderate/High Risk (score >= 2) Caprini Risk Assessment Model: Point Value = 1 Point Value = 2 Point Value = 3 Point Value = 5 Age 41-60 Minor surgery BMI > 25 kg/m2 Swollen legs Varicose veins or History of unexplained or recurrent spontaneous Oral contraceptives or hormone replacement Sepsis (< 1 month) Serious lung disease, including pneumonia (< 1 month) Abnormal pulmonary function Acute myocardial infarction Congestive heart failure (< 1 month) History of inflammatory bowel disease Medical patient at bed rest Age 61-74 Arthroscopic surgery Major open surgery (> 45 min) Laparoscopic surgery (> 45 min) Malignancy Confined to bed (> 72 hours) Immobilizing plaster cast Central venous access Age >= 75 History of VTE Family history of VTE Factor V Leiden Prothrombin [id number] Lupus anticoagulant Anticardiolipin antibodies Elevated serum homocysteine Heparin-induced thrombocytopenia Other congenital or acquired thrombophilia Stroke (< 1 month) Elective arthroplasty Hip, pelvis, or leg fracture Acute spinal cord injury (< 1 month) Prophylaxis Regimen: Total Risk Factor Score Risk Level Prophylaxis Regimen 0-1 Low Early ambulation 2 Moderate Order ONE of the following: *Sequential Compression Device (SCD) *Heparin 5000 units SQ BID 3-4 Higher Order ONE of the following medications: *Heparin 5000 units SQ TID *Enoxaparin/Lovenox 40 mg SQ daily (WT < 150 kg, CrCl > 30 mL/min) *Enoxaparin/Lovenox 30 mg SQ daily (WT < 150 kg, CrCl > 10-29 mL/min) *Enoxaparin/Lovenox 30 mg SQ BID (WT < 150 kg, CrCl > 30 mL/min) AND/OR *Sequential Compression Device (SCD) 5 or more Highest Order ONE of the following medications: *Heparin 5000 units SQ TID (Preferred with Epidurals) *Enoxaparin/Lovenox 40 mg SQ daily (WT < 150 kg, CrCl > 30 mL/min) *Enoxaparin/Lovenox 30 mg SQ daily (WT < 150 kg, CrCl > 10-29 mL/min) *Enoxaparin/Lovenox 30 mg SQ BID (WT < 150 kg, CrCl > 30 mL/min) AND *Sequential Compression Device (SCD) Assessment and Plan - Assessment and Plan Plan: 72-year-old female with: Ischemic stroke status post thrombolysis Allergic reaction possibly to TPA with angioedema Acute respiratory failure on mechanical ventilation Hypertension Plan: Neuro: Sedation with propofol, fentanyl if needed. Daily sedation medication. Follow neuro checks. Repeat head CT tomorrow. Follow stroke protocol. Neurology consulted and has already evaluated patient. Antiplatelet therapy to be initiated when okay with neurology. Cardiovascular: IV hydration, watch for hypotension. Labetalol as needed to keep SBP below 220/120 Pulmonary: Continue mechanical ventilation. Patient to be kept intubated to the angioedema subsides. Continue Benadryl, Decadron, Pepcid. Bronchodilators as needed. GI/liver: N.p.o. for now. If she remains intubated tomorrow will initiate tube feeds. Renal/: IV hydration, strict intake output, monitor and replete electrolytes, follow BUN/creatinine. ID: No indication for antibiotics at this time. Prophylaxis: Pepcid/SCDs. Subcu Lovenox when okay with neurology. Status with patient's and daughter at bedside in the ER and they voiced understanding regarding plan of care and were agreeable. Condition critical Time spent on critical care excluding procedures 50 minutes
[2018-05-23 18:34] LABS: Chol/HDL Ratio 3.95 Ratio; HDL Cholesterol 39.7 mg/dL (40.0-60.0)
[2018-05-23 19:16] LABS: ABG Base Excess -2.4 mmol/L (-2-2); ABG PCO2 35 mmHg (38-42); ABG PO2 200 mmHg (61-120)
[2018-05-23] MEDS: Famotidine 20 MG Tablet PO SCH (20:57)
[2018-05-23] MEDS: Senna/Docusate Sodium 8.6/50 MG Tablet PO SCH (20:57)
[2018-05-23] MEDS: Famotidine PF Inj 20 MG/2 ML Vial IV.PUSH SCH (21:49)
--- NOTE | 2018-05-24 02:01 | MB ---
cc: Edil Travis MD, PhD DATE: 05/23/2018 REASON FOR CONSULTATION: Stroke alert. HISTORY OF PRESENT ILLNESS: This is a pleasant 72-year-old woman previously in good health who around 1:40 this afternoon had sudden onset of difficulty getting words out as well as right-sided weakness, presented to the ER as a stroke alert. His symptoms have remained unchanged. NIH stroke scale is 5. PAST MEDICAL HISTORY: Hypertension, coronary artery disease, hypercholesterolemia. MEDICATIONS: She does take Plavix as well as antihypertensives. She is not on any anticoagulation. PHYSICAL EXAMINATION: VITAL SIGNS: Blood pressure 174/97, pulse 75, respirations 21. HIGH CORTICAL FUNCTION: She is alert. She has an expressive aphasia. There is a right upper motor neuron VII palsy. Pupils are equal, reactive. On motor exam, she has weakness, right arm and right leg, rated at 4/5 with normal strength on the left. DIAGNOSTIC DATA: CT brain unremarkable, no acute change. CTA of the brain, no evidence of any large vessel occlusion. CTA of the neck, no sign of any significant carotid artery stenosis. LABORATORY DATA: The white count is 7700, hemoglobin 13.3, hematocrit 38.7%, platelet count 269,000. PT 10.6, INR 1, aPTT 25.8. Sodium 138, potassium 4.2, chloride 104, BUN is 20, creatinine 1.3, glucose 172. Urinalysis, pH is 5, specific gravity 1.016. 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 The patient does meet criteria for IV tPA. This was discussed with the family and the patient, including the 6% risk of hemorrhage. Family and the patient state that they do wish to proceed with IV tPA. Therefore, this has been started per protocol. She is not a candidate for intervention given the negative CTA of the brain with no sign of large vessel occlusion. She will be admitted to the ICU post-tPA following the post-tPA vital signs and neuro checks. No antiplatelets or anticoagulants for 24 hours. We will obtain a CT brain 24 hours after TPA. Also, MRI/MRA of the brain, echocardiogram. Monitor cardiac telemetry, rule out atrial fibrillation. Edil Travis MD, PhD GABRIELA/gurwinder , 03:32 PM , 03:39 PM
[2018-05-24] MEDS ORDERED: Chlorhexidine Gluconate 2% 1 Pack (2 Cloths) TOPICAL PRN (04:00)
[2018-05-24] MEDS: Chlorhexidine Gluconate 2% 1 Pack (2 Cloths) TOPICAL SCH (04:38)
[2018-05-24] MEDS: Propofol 1000 mg/100 ml Inj 1,000 MG/100 ML BOTTLE IV.CONT PRN ×3 (05:11→17:35)
[2018-05-24] MEDS: Sod Chloride 0.9% Inj 1,000 ML IV.CONT SCH ×3 (05:17→20:33)
[2018-05-24] MEDS: Famotidine PF Inj 20 MG/2 ML Vial IV.PUSH SCH ×2 (08:08→20:06)
[2018-05-24] MEDS: Famotidine 20 MG Tablet PO SCH (08:55)
[2018-05-24] MEDS: Senna/Docusate Sodium 8.6/50 MG Tablet PO SCH ×2 (08:56→20:06)
--- NOTE | 2018-05-24 12:07 | P.PNCC ---
Subjective Subjective Remarks/Hospital Course: 05/23: HPI Narrative: 72-year-old female that presents to the ED for evaluation of possible stroke. Per patient and who provides most of the information less than 20 minutes before coming patient was complaining that she was having a "migraine" and did not feel right so she went to the bathroom. Apparently when she was in the bathroom she had trouble getting her pants and underwear off and could not do it on her own. She called for her for assistance in her 's are noted that she was having trouble speaking and she had a little difficulty using her hands. He took her here for get evaluated as there were concerned for stroke. Per patient she does not have any history of CVA in the past. She does have a history of kidney disease stage II as well as a history of high blood pressure. She does take Plavix. She denies any trauma or injury. Per symptoms started 20 minutes ago. She denies any history of this in the past. No recent travel. No allergies to medication. Patient herself is somewhat hard to assess as she does appear to have bad aphasia and dysarthria and has difficulty speaking. She does appear to be somewhat drowsy as well. Stroke alert called in ER, patient underwent CT head which was negative for bleed, , CTA brain and neuro eval by Dr. Travis and was administered TPA. Shortly after TPA administration she developed lip/ tongue swelling with difficulty breathing. Allergic reaction to TPA was suspected and patient was emergently intubated and placed on mech ventilation by ER physician. She did recieve Benadryl, IV Decadron 10mg IV, Pepcid and Epinephrine. Patient was accepted for admission by critical care and I evaluated patient in the ER. At that time she was sedated, orally intubated with significant tongue swelling noted. 05/24: Remains sedated, orally intubated on mech vent. Tongue swelling still present. Objective Vital Signs / I&O: Vital Signs 05/23/18 13:56 05/23/18 14:00 05/23/18 15:03 Temperature 97.5 F L Pulse Rate 75 Respiratory Rate 21 Blood Pressure 174/97 H Pulse Oximetry 98 99 98 05/23/18 16:19 05/23/18 17:30 05/23/18 18:00 Temperature 98 F Pulse Rate 84 Respiratory Rate 16 16 16 Blood Pressure 156/65 H Pulse Oximetry 99 100 100 05/23/18 18:20 05/23/18 20:00 05/23/18 21:55 Temperature 98.2 F Pulse Rate 61 Respiratory Rate 15 16 Blood Pressure 141/63 H Pulse Oximetry 100 100 100 05/23/18 21:56 05/23/18 22:00 05/24/18 00:00 Temperature 98.2 F Pulse Rate 53 L 55 L 60 Respiratory Rate 16 15 Blood Pressure 164/71 H Pulse Oximetry 05/24/18 00:18 05/24/18 02:00 05/24/18 04:00 Temperature 98.9 F Pulse Rate 60 53 L Respiratory Rate 15 15 Blood Pressure 138/63 Pulse Oximetry 100 05/24/18 04:26 05/24/18 06:00 05/24/18 08:00 Temperature 97.8 F Pulse Rate 52 L 58 L 57 L Respiratory Rate 15 15 Blood Pressure 151/67 H Pulse Oximetry 100 100 05/24/18 08:19 05/24/18 10:00 Temperature Pulse Rate 56 L 65 Respiratory Rate 15 Blood Pressure Pulse Oximetry 100 Intake & Output 05/23/18 05/24/18 05/24/18 18:59 06:59 18:59 Intake Total 56 / 56 1100 / 1100 100 / 100 Output Total 600 / 600 Balance 56 / 56 500 / 500 100 / 100 Weight 69.1 kg 69.8 kg Intake: IV 56 / 56 1100 / 1100 100 / 100 Diprivan 1000 mg/100 ml Inj 1, 100 / 100 100 / 100 000 mg In 100 ml @ 5 MCG/KG/MIN 2.073 mls/hr IV.CONT TITRATE PRN Rx#:[id number] NS Inj 1,000 ML @ 70 mls/hr IV. 1000 / 1000 CONT .[id number] AUDREY Rx#:[id number] Activase Drip 56 MG In Bag/ 56 / 56 Syringe 1 EACH @ 56 mls/hr IV. SIG ONCE ONE Rx#:[id number] Oral 0 / 0 Output: Urine Amount (Catheter) 550 / 550 Indwelling Urethral Catheter 550 / 550 Gastric Drainage 50 / 50 Orogastric Tube 50 / 50 Result Diagrams: 05/23/18 14:05 Other Results: Laboratory Results - last 24 hr 05/23/18 05/23/18 05/23/18 14:05 14:05 14:05 WBC 7.7 RBC 4.00 Hgb 13.3 POC Hgb (Calc) 12.2 Hct 38.7 POC Hct 36.0 MCV 96.8 MCH 33.2 MCHC 34.3 RDW 12.8 Plt Count 269 MPV 8.5 Neut % (Auto) 75.7 H Lymph % (Auto) 16.0 [place] % (Auto) 3.7 Eos % (Auto) 3.2 Baso % (Auto) 1.4 Neut # (Auto) 5.8 Lymph # (Auto) 1.2 [place] # (Auto) 0.3 Eos # (Auto) 0.2 Baso # (Auto) 0.1 WBC Differential . Differential Comment Auto diff final PT 10.6 INR 1.0 APTT 25.8 Fibrinogen 405 H Puncture Site Patient Temperature O2 Saturation ABG pH ABG pCO2 ABG pO2 ABG HCO3 ABG O2 Content ABG Base Excess ABG Methemoglobin Duglas Test Hemoglobin Carboxyhemoglobin O2 Delivery Device Vent Setting Inspired O2 Critical Value POC Sodium 138 POC Potassium 4.2 POC Chloride 104 POC BUN 20 POC Creatinine 1.3 POC Glucose 172 H Total Creatine Kinase 43 Troponin I Less than 0.02 L Triglycerides Cholesterol LDL Cholesterol, Calc HDL Cholesterol Cholesterol/HDL Ratio Beta HCG, Quant Less than 1 Urine Color Urine Clarity Urine pH Ur Specific [place] Urine Protein Urine Glucose (UA) Urine Ketones Urine Occult Blood Urine Nitrate Urine Bilirubin Urine Urobilinogen Ur Leukocyte Esterase Urine WBC Ur Squamous Epith Cells Micro UA Comment Ur Microscopic Review Urine Culture Comments Nasal Screen MRSA (PCR) Urine Opiates Screen Ur Barbiturates Screen Ur Amphetamines Screen U Benzodiazepines Scrn Urine Cocaine Screen U Cannabinoids Screen Blood Type Antibody Screen 05/23/18 05/23/18 05/23/18 14:05 14:05 14:32 WBC RBC Hgb POC Hgb (Calc) Hct POC Hct MCV MCH MCHC RDW Plt Count MPV Neut % (Auto) Lymph % (Auto) [place] % (Auto) Eos % (Auto) Baso % (Auto) Neut # (Auto) Lymph # (Auto) [place] # (Auto) Eos # (Auto) Baso # (Auto) WBC Differential Differential Comment PT INR APTT Fibrinogen Puncture Site Patient Temperature O2 Saturation ABG pH ABG pCO2 ABG pO2 ABG HCO3 ABG O2 Content ABG Base Excess ABG Methemoglobin Duglas Test Hemoglobin Carboxyhemoglobin O2 Delivery Device Vent Setting Inspired O2 Critical Value POC Sodium POC Potassium POC Chloride POC BUN POC Creatinine POC Glucose Total Creatine Kinase Troponin I Triglycerides 392 H Cholesterol 157 LDL Cholesterol, Calc 39 HDL Cholesterol 39.7 L Cholesterol/HDL Ratio 3.95 Beta HCG, Quant Urine Color Straw Urine Clarity Clear Urine pH 5.0 Ur Specific [place] 1.016 Urine Protein Negative Urine Glucose (UA) Negative Urine Ketones Negative Urine Occult Blood Negative Urine Nitrate Negative Urine Bilirubin Negative Urine Urobilinogen Less than 2 Ur Leukocyte Esterase Negative Urine WBC Less than 1 Ur Squamous Epith Cells <1 Micro UA Comment Cath-culture not ind Ur Microscopic Review Not Reportable Urine Culture Comments Cath-cult not ind Nasal Screen MRSA (PCR) Urine Opiates Screen Ur Barbiturates Screen Ur Amphetamines Screen U Benzodiazepines Scrn Urine Cocaine Screen U Cannabinoids Screen Blood Type O Positive Antibody Screen Negative 05/23/18 05/23/18 05/23/18 14:34 18:23 18:25 WBC RBC Hgb POC Hgb (Calc) Hct POC Hct MCV MCH MCHC RDW Plt Count MPV Neut % (Auto) Lymph % (Auto) [place] % (Auto) Eos % (Auto) Baso % (Auto) Neut # (Auto) Lymph # (Auto) [place] # (Auto) Eos # (Auto) Baso # (Auto) WBC Differential Differential Comment PT INR APTT Fibrinogen Puncture Site Patient Temperature O2 Saturation ABG pH ABG pCO2 ABG pO2 ABG HCO3 ABG O2 Content ABG Base Excess ABG Methemoglobin [place] Test Hemoglobin Carboxyhemoglobin O2 Delivery Device Vent Setting Inspired O2 Critical Value POC Sodium POC Potassium POC Chloride POC BUN POC Creatinine POC Glucose 236 H Total Creatine Kinase Troponin I Triglycerides Cholesterol LDL Cholesterol, Calc HDL Cholesterol Cholesterol/HDL Ratio Beta HCG, Quant Urine Color Urine Clarity Urine pH Ur Specific [place] Urine Protein Urine Glucose (UA) Urine Ketones Urine Occult Blood Urine Nitrate Urine Bilirubin Urine Urobilinogen Ur Leukocyte Esterase Urine WBC Ur Squamous Epith Cells Micro UA Comment Ur Microscopic Review Urine Culture Comments Nasal Screen MRSA (PCR) Not detected Urine Opiates Screen Neg Ur Barbiturates Screen Neg Ur Amphetamines Screen Neg U Benzodiazepines Scrn Neg Urine Cocaine Screen Neg U Cannabinoids Screen Neg Blood Type Antibody Screen 05/23/18 19:03 WBC RBC Hgb POC Hgb (Calc) Hct POC Hct MCV MCH MCHC RDW Plt Count MPV Neut % (Auto) Lymph % (Auto) [place] % (Auto) Eos % (Auto) Baso % (Auto) Neut # (Auto) Lymph # (Auto) [place] # (Auto) Eos # (Auto) Baso # (Auto) WBC Differential Differential Comment PT INR APTT Fibrinogen Puncture Site Right radial Patient Temperature 98.6 O2 Saturation 97 ABG pH 7.40 ABG pCO2 35 L ABG pO2 200 H ABG HCO3 22 ABG O2 Content 17.3 ABG Base Excess -2.4 L ABG Methemoglobin 1.2 Duglas Test Present Hemoglobin 12.4 Carboxyhemoglobin 1.5 O2 Delivery Device Ventilator Vent Setting Prvc/ac Inspired O2 50 Critical Value No POC Sodium POC Potassium POC Chloride POC BUN POC Creatinine POC Glucose Total Creatine Kinase Troponin I Triglycerides Cholesterol LDL Cholesterol, Calc HDL Cholesterol Cholesterol/HDL Ratio Beta HCG, Quant Urine Color Urine Clarity Urine pH Ur Specific [place] Urine Protein Urine Glucose (UA) Urine Ketones Urine Occult Blood Urine Nitrate Urine Bilirubin Urine Urobilinogen Ur Leukocyte Esterase Urine WBC Ur Squamous Epith Cells Micro UA Comment Ur Microscopic Review Urine Culture Comments Nasal Screen MRSA (PCR) Urine Opiates Screen Ur Barbiturates Screen Ur Amphetamines Screen U Benzodiazepines Scrn Urine Cocaine Screen U Cannabinoids Screen Blood Type Antibody Screen Imaging: Chest X-Ray 05/23/18 14:00 CONCLUSION: Negative examination. Head CT 05/23/18 14:00 CONCLUSION: 1. Negative CT Head non contrast. Report was called by [Dr. Brown at 2:15 PM on May 23, [address] Sarkar. ] Head CTA 05/23/18 14:00 CONCLUSION: 1. No high-grade stenosis or intracranial aneurysm or occlusion intracranially. 2. In the neck there is moderate to severe calcific plaque at the left carotid bulb, and severe calcific plaque at the origin of the right internal carotid artery. Neck CTA 05/23/18 14:00 CONCLUSION: 1. Atherosclerotic plaquing involving bilateral ICAs, which appear to be soft plaque without any significant stenosis. Objective Remarks: HEENT/ Neuro: Sedated, orally intubated, no pallor, no icterus, tongue/ mucosa moist. Significant tongue swelling noted. Moving both upper and lower extremities. Difficult to do detailed neuro assessment due to sedation. Pupils bilaterally 3 mm reacting actively to light Neck: No JVD Chest/Pulm: on mech vent, good air entry bilaterally, no wheezing or crackles CVS: S1-S2 regular, no murmur GI/abdomen: soft, nontender, bowel sounds sluggish Extremities: warm bilaterally, no edema Assessment and Plan - Assessment and Plan Plan: 72-year-old female with: Ischemic stroke status post thrombolysis Allergic reaction possibly to TPA with angioedema Acute respiratory failure on mechanical ventilation Hypertension Plan: Neuro: Sedation with propofol, fentanyl if needed. Daily sedation medication. Follow neuro checks. Repeat head CT tomorrow. Follow stroke protocol. Neurology consulted and has already evaluated patient. Antiplatelet therapy to be initiated when okay with neurology. Cardiovascular: IV hydration, watch for hypotension. Labetalol as needed to keep SBP below 220/120 Pulmonary: Continue mechanical ventilation. Patient to be kept intubated to the angioedema subsides. Continue Benadryl, Decadron, Pepcid. Bronchodilators as needed. GI/liver: N.p.o. for now. If she remains intubated tomorrow will initiate tube feeds. Renal/: IV hydration, strict intake output, monitor and replete electrolytes, follow BUN/creatinine. ID: No indication for antibiotics at this time. Prophylaxis: Pepcid/SCDs. Subcu Lovenox when okay with neurology. discussed current clinical status with patient's at bedside in the ER and they voiced understanding regarding plan of care and were agreeable. Condition critical Time spent on critical care excluding procedures 35 minutes
--- NOTE | 2018-05-24 12:15 | P.DIET ---
Nutritional Evaluation Type of nutrition evaluation: initial Nutrition consult regarding: Tube Feeding Objective - Diagnosis Acute CVA on TPA, anaphylaxis reaction - Objective Manti body weight: 61.4 kg % IBW: 114 Body Weight Used for Calculations: Actual (69.8 kg) Energy Needs - Lower Range (kCal/kg): 25 Energy Needs - Upper Range (kCal/kg): 30 Lower Limit kCal/kg (kCals): 1,745 Upper Limit kCal/kg (kCals): 2,094 Lower Limit Protein Factor (Grams per Kg): 1.1 Upper Limit Protein Factor (Grams per Kg): 1.4 Lower Protein Needs (Protein): 77 Upper Protein Needs (Protein): 98 Dietitian Reviewed in Medical Record: Curent medications, Intake & Output, Labs , Medical history, Tube feeding Diet Order: NPO Objective Comments: PMH Includes: CAD, hard of hearing, HTN, high cholesterol Glucose 236, A1C pending Meds Include Propofol Feeding - Current Tube Feeding Diprivan Rate: 12.4 Lipid kCals From Diprivan: 328 Assessment Assessment: Pt is at nutritional risk r/t need for TF'ing. For TF'ing w/Glucerna 1.5, Rec a goal rate @ 50ml/hr to offer 1800 kcal, 99g protein and 911ml free water. Propofol provides some additional kcals(1.1 kcal/ml)when running. Recommendations: 1. For TF'ing w/Glucerna 1.5, Rec a goal rate @ 50ml/hr 2. Propofol provides some additional kcals(1.1 kcal/ml)when running Dietitian to Monitor: Lab values, Glucose level, Intake & Output, Tube feeding tolerance, Weight change, Medical course
[2018-05-24 13:03] LABS: Hemoglobin A1c 5.9 % (4.3-6.0)
--- NOTE | 2018-05-24 15:27 | ECG ---
Date Performed: 05/23/2018 Time Performed: 14:39:45 PTAGE: 72 years EKG: SINUS BRADYCARDIA BORDERLINE ECG Since PREVIOUS TRACING , no significant change noted PREVIOUS TRACIN01/31/2015 11.09 DOCTOR: Justino Garza Interpretating Date/Time 05/24/2018 15:27:04
--- NOTE | 2018-05-24 15:59 | CT ---
EXAM DATE: 05/24/2018 3:54 PM EDT AGE/SEX: 72 years / Female INDICATIONS: Status post TPA. CLINICAL DATA: This is the patient's subsequent encounter. Patient reports that signs and symptoms h ave been present for 1 day and indicates a pain score of Nonresponsive. MEDICAL/SURGICAL HISTORY: Cardiovascular disease. Hypertension. None. RADIATION DOSE: 46.17 CTDI (mGy) COMPARISON: [facility] – [place], CT HEAD W/O CONTRAST, 05/23/2018. . TECHNIQUE: CT of the head without contrast. Using automated exposure control and adjustment of the mA and/or kV according to patient size, radiation dose was kept as low as reasonably achievable to ob tain optimal diagnostic quality images. DICOM format image data is available electronically for revi ew and comparison. FINDINGS: There is no evidence for intracranial hemorrhage, mass effect, mass lesions, edema, or extra-axial fl uid collections. The visualized bony structures appear intact. The ventricles are normal size for t he patient's age. There are no signs of acute infarction for technique. CONCLUSION: Unremarkable study and not changed. Electronically signed by: Kumar Kaufman MD 05/24/2018 3:57 PM EDT
--- NOTE | 2018-05-24 16:39 | P.PNNEU ---
Subjective Subjective Comments: No new neuro sx Active Medications: Active Medications Acetaminophen (Tylenol) 650 mg PO Q6H PRN PRN Reason: PAIN 1-10 AND/OR FEVER >101F Acetaminophen (Tylenol) 650 mg PO Q6H PRN PRN Reason: PAIN 1-10 AND/OR FEVER >101F Al Hydroxide/Mg Hydroxide (Milk Of Magnesia Liq) 30 ml PO Q12H PRN PRN Reason: Mild Constipation Albuterol (Albuterol Neb (Prn)) 2.5 mg NEB Q2HR NEB PRN PRN Reason: SHORTNESS OF BREATH/WHEEZING Albuterol (Albuterol Neb (Prn)) 2.5 mg NEB Q4HR NEB PRN PRN Reason: SHORTNESS OF BREATH Albuterol (Duoneb Neb (Yanet)) 1 ampul NEB Q6HR NEB [facility] Last Admin: 05/24/18 15:06 Dose: 1 ampul Aspirin (Aspirin Supp) 300 mg RECTAL DAILY YANET Bisacodyl (Dulcolax Supp) 10 mg RECTAL DAILY PRN PRN Reason: SEVERE CONSITIPATION Chlorhexidine Gluconate (Chlorhexidine 2% Cloth) 3 pack TOPICAL DAILY@0400 [facility] Stop: 05/29/18 03:59 Last Admin: 05/24/18 04:38 Dose: 3 pack Chlorhexidine Gluconate (Chlorhexidine 2% Cloth) 3 pack TOPICAL DAILY@0400 PRN PRN Reason: Extra cloth needed Stop: 05/29/18 03:59 Dexamethasone Sodium Phosphate (Decadron Inj) 4 mg IV.PUSH Q6HR [facility] Last Admin: 05/24/18 11:29 Dose: 4 mg Diphenhydramine HCl (Benadryl Inj) 25 mg IV.PUSH Q6H [facility] Last Admin: 05/24/18 11:28 Dose: 25 mg Famotidine (Pepcid Pf Inj) 20 mg IV.PUSH Q12HR [facility] Last Admin: 05/24/18 08:08 Dose: 20 mg Sodium Chloride (Ns Inj) 1,000 mls @ 70 mls/hr IV.CONT .[id number] [facility] Last Admin: 05/24/18 05:17 Dose: 70 mls/hr Propofol (Diprivan 1000 Mg/100 Ml Inj) 1,000 mg in 100 mls @ 2.073 mls/hr IV.CONT TITRATE PRN; Protocol PRN Reason: Per Protocol Last Admin: 05/24/18 11:29 Dose: 30 mcg/kg/min, 12.44 mls/hr Lactulose (Lactulose Liq) 30 ml PO DAILY PRN PRN Reason: SEVERE CONSITIPATION Senna/Docusate Sodium (Cat-Colace) 1 tab PO BID [facility] Last Admin: 05/24/18 08:56 Dose: Not Given Sennosides (Senokot) 17.2 mg PO Q12H PRN PRN Reason: Moderate Constipation Sodium Chloride (Ns Flush) 2 ml IV.FLUSH BID [facility] Last Admin: 05/24/18 08:55 Dose: 2 ml Sodium Chloride (Ns Flush) 2 ml IV.FLUSH PRN PRN PRN Reason: FLUSH AFTER USING IV ACCESS Sodium Chloride (Ns Flush) 2 ml IV.FLUSH BID [facility] Last Admin: 05/24/18 08:55 Dose: 2 ml Sodium Chloride (Ns Flush) 2 ml IV.FLUSH PRN PRN PRN Reason: FLUSH AFTER USING IV ACCESS Allergies/Adverse Reactions: Allergies Allergy/AdvReac Type Severity Reaction Status Date / Time alteplase [From Activase] Allergy Severe Swelling Verified 05/23/18 17:01 of Lip/Tongue/Throat Iodinated Contrast- Oral and Allergy Severe Swelling Verified 05/23/18 17:01 IV Dye of [Contrast] Lip/Tongue/Throat Physical Exam Vital signs: Vital Signs 05/23/18 17:30 05/23/18 18:00 05/23/18 18:20 Temperature 98 F Pulse Rate 84 Respiratory Rate 16 16 Blood Pressure 156/65 H Pulse Oximetry 100 100 100 05/23/18 20:00 05/23/18 21:55 05/23/18 21:56 Temperature 98.2 F Pulse Rate 61 53 L Respiratory Rate 15 16 16 Blood Pressure 141/63 H Pulse Oximetry 100 100 05/23/18 22:00 05/24/18 00:00 05/24/18 00:18 Temperature 98.2 F Pulse Rate 55 L 60 Respiratory Rate 15 15 Blood Pressure 164/71 H Pulse Oximetry 100 05/24/18 02:00 05/24/18 04:00 05/24/18 04:26 Temperature 98.9 F Pulse Rate 60 53 L 52 L Respiratory Rate 15 15 Blood Pressure 138/63 Pulse Oximetry 100 05/24/18 06:00 05/24/18 08:00 05/24/18 08:19 Temperature 97.8 F Pulse Rate 58 L 57 L 56 L Respiratory Rate 15 15 Blood Pressure 151/67 H Pulse Oximetry 100 100 05/24/18 10:00 05/24/18 12:00 05/24/18 12:34 Temperature 98.6 F Pulse Rate 65 65 Respiratory Rate 15 15 Blood Pressure 152/65 H Pulse Oximetry 100 100 05/24/18 14:00 05/24/18 15:06 Temperature Pulse Rate 61 58 L Respiratory Rate 15 Blood Pressure Pulse Oximetry 100 Intake & Output 05/23/18 05/24/18 05/24/18 18:59 06:59 18:59 Intake Total 56 / 56 1100 / 1100 100 / 100 Output Total 600 / 600 Balance 56 / 56 500 / 500 100 / 100 Weight 69.1 kg 69.8 kg Intake: IV 56 / 56 1100 / 1100 100 / 100 Diprivan 1000 mg/100 ml Inj 1, 100 / 100 100 / 100 000 mg In 100 ml @ 5 MCG/KG/MIN 2.073 mls/hr IV.CONT TITRATE PRN Rx#:[id number] NS Inj 1,000 ML @ 70 mls/hr IV. 1000 / 1000 CONT .[id number] YANET Rx#:[id number] Activase Drip 56 MG In Bag/ 56 / 56 Syringe 1 EACH @ 56 mls/hr IV. SIG ONCE ONE Rx#:[id number] Oral 0 / 0 Output: Urine Amount (Catheter) 550 / 550 Indwelling Urethral Catheter 550 / 550 Gastric Drainage 50 / 50 Orogastric Tube 50 / 50 - Routine Neurological Exam sedated CN intact MOVES BUE--weaker on right - Urinary Catheter Management Indwelling Urethral Catheter Cath placed during this visit: yes Reason for continuing: Hourly intake/output Insertion date: 05/23/18 Insertion time: 14:34 Objective Laboratory Results - last 24 hr 05/23/18 05/23/18 05/23/18 14:05 14:05 18:23 Puncture Site Patient Temperature O2 Saturation ABG pH ABG pCO2 ABG pO2 ABG HCO3 ABG O2 Content ABG Base Excess ABG Methemoglobin Duglas Test Hemoglobin Carboxyhemoglobin O2 Delivery Device Vent Setting Inspired O2 Critical Value POC Glucose 236 H Hemoglobin A1c 5.9 Triglycerides 392 H Cholesterol 157 LDL Cholesterol, Calc 39 HDL Cholesterol 39.7 L Cholesterol/HDL Ratio 3.95 Nasal Screen MRSA (PCR) 05/23/18 05/23/18 18:25 19:03 Puncture Site Right radial Patient Temperature 98.6 O2 Saturation 97 ABG pH 7.40 ABG pCO2 35 L ABG pO2 200 H ABG HCO3 22 ABG O2 Content 17.3 ABG Base Excess -2.4 L ABG Methemoglobin 1.2 Duglas Test Present Hemoglobin 12.4 Carboxyhemoglobin 1.5 O2 Delivery Device Ventilator Vent Setting Prvc/ac Inspired O2 50 Critical Value No POC Glucose Hemoglobin A1c Triglycerides Cholesterol LDL Cholesterol, Calc HDL Cholesterol Cholesterol/HDL Ratio Nasal Screen MRSA (PCR) Not detected Review/Management - Diagnosis (1) Acute CVA (cerebrovascular accident) Code(s): I63.9 - Cerebral infarction, unspecified Status: Acute Current Visit: Yes - Review/Management Plan: CT brain 24 hr post TPA negative start asa follow up mri and echo
--- NOTE | 2018-05-24 16:45 | MR ---
EXAM DATE: 05/24/2018 4:39 PM EDT AGE/SEX: 72 years / Female INDICATIONS: Stroke alert. CLINICAL DATA: This is the patient's initial encounter. Patient reports that signs and symptoms have been present for 1 day and indicates a pain score of 0/10. MEDICAL/SURGICAL HISTORY: Cardiovascular disease. Hypertension. Hypercholesterolemia. None. COMPARISON: [facility] [place] W/O CONTRAST, 05/24/2018. . TECHNIQUE: Multiplanar, multisequence examination of the brain was performed without contrast. FINDINGS: There is an area of acute infarction involving the left parietal lobe which demonstrates abnormal dif fusion capacity. There is no hemorrhage or mass effect. Patient is on TPA per clinical history. CONCLUSION: 1. Acute stroke left parietal lobe without hemorrhage or mass effect. Electronically signed by: Kumar Kaufman MD 05/24/2018 4:44 PM EDT
[2018-05-24 19:12] LABS: Baso # (Auto) 0.1 th/mm3 (0.0-0.2); Baso % (Auto) 0.3 % (0.0-2.0); Hematocrit 37.7 % (35.0-46.0); Hemoglobin 12.5 gm/dL (11.6-15.3); Lymph # (Auto) 0.3 th/mm3 (1.0-4.8); Mean Corpuscular HGB Conc 33.2 % (32.0-36.0); Mean Corpuscular Hemoglobin 32.4 pg (27.0-34.0); Mean Corpuscular Volume 97.5 fL (80.0-100.0); Mean Platelet Volume 8.7 fL (7.0-11.0); Mono # (Auto) 0.4 th/mm3 (0.0-0.9); Neut # (Auto) 16.4 th/mm3 (1.8-7.7); Neut % (Auto) 95.7 % (16.0-70.0); Platelet Count 280 th/mm3 (150-450); Red Blood Count 3.86 mil/mm3 (4.00-5.30); Red Cell Distribution Width 13.3 % (11.6-17.2); White Blood Count 17.2 th/mm3 (4.0-11.0)
[2018-05-24 19:31] LABS: Activated Partial Thrombo Time 19.6 sec (24.3-30.1); INR 1.1 Ratio; Prothrombin Time 11.2 sec (9.8-11.6)
[2018-05-24 19:34] LABS: Albumin 3.6 g/dL (3.4-5.0); Anion Gap 11 meq/L (5-15); Aspartate Aminotransferase 17 U/L (15-37); Blood Urea Nitrogen 32 mg/dL (7-18); Calcium 9.2 mg/dL (8.5-10.1); Carbon Dioxide 19.9 meq/L (21.0-32.0); Chloride 109 meq/L (98-107); Glomerular Filtration Rate 31 mL/min (>89); Glucose,Random 137 mg/dL (74-106); Magnesium 2.1 mg/dL (1.5-2.5); Sodium 140 meq/L (136-145)
[2018-05-24 19:35] LABS: Alanine Aminotransferase 21 U/L (10-53); Phosphorus 4.4 mg/dL (2.5-4.9)
[2018-05-24 19:37] LABS: Alkaline Phosphatase 87 U/L (45-117); Total Protein 7.1 g/dL (6.4-8.2)
[2018-05-24] MEDS ORDERED: Sod Chloride 0.9% Inj 1,000 ML IV.SIG SCH (20:30)
[2018-05-25] MEDS: Propofol 1000 mg/100 ml Inj 1,000 MG/100 ML BOTTLE IV.CONT PRN ×5 (00:53→23:45)
[2018-05-25] MEDS: Sod Chloride 0.9% Inj 1,000 ML IV.CONT SCH ×3 (03:45→17:12)
[2018-05-25] MEDS: Chlorhexidine Gluconate 2% 1 Pack (2 Cloths) TOPICAL SCH (03:46)
[2018-05-25 04:45] LABS: Baso % (Auto) 0.1 % (0.0-2.0); Hematocrit 32.4 % (35.0-46.0); Lymph # (Auto) 0.4 th/mm3 (1.0-4.8); Lymph % (Auto) 1.9 % (9.0-44.0); Mean Corpuscular HGB Conc 33.8 % (32.0-36.0); Mean Corpuscular Hemoglobin 32.6 pg (27.0-34.0); Mean Corpuscular Volume 96.6 fL (80.0-100.0); Mean Platelet Volume 8.7 fL (7.0-11.0); Mono # (Auto) 0.4 th/mm3 (0.0-0.9); Mono % (Auto) 2.3 % (0.0-8.0); Neut # (Auto) 17.5 th/mm3 (1.8-7.7); Neut % (Auto) 95.7 % (16.0-70.0); Platelet Count 244 th/mm3 (150-450); Red Blood Count 3.36 mil/mm3 (4.00-5.30); Red Cell Distribution Width 13.5 % (11.6-17.2); White Blood Count 18.3 th/mm3 (4.0-11.0)
[2018-05-25 05:19] LABS: Alanine Aminotransferase 20 U/L (10-53); Albumin 3.1 g/dL (3.4-5.0); Alkaline Phosphatase 73 U/L (45-117); Anion Gap 14 meq/L (5-15); Aspartate Aminotransferase 14 U/L (15-37); Blood Urea Nitrogen 34 mg/dL (7-18); Calcium 8.3 mg/dL (8.5-10.1); Carbon Dioxide 17.4 meq/L (21.0-32.0); Chloride 112 meq/L (98-107); Glomerular Filtration Rate 33 mL/min (>89); Glucose,Random 156 mg/dL (74-106); Potassium 4.7 meq/L (3.5-5.1); Sodium 143 meq/L (136-145)
--- NOTE | 2018-05-25 06:09 | XR ---
EXAM DATE: 05/25/2018 6:04 AM EDT AGE/SEX: 72 years / Female INDICATIONS: Respiratory failure. CLINICAL DATA: This is the patient's subsequent encounter. Patient reports that signs and symptoms h ave been present for 3 days and indicates a pain score of Nonresponsive. MEDICAL/SURGICAL HISTORY: . Cardiovascular disease. Hypertension None. COMPARISON: [facility] – [place], CHEST 1V SINGLE AP, 05/23/2018. . FINDINGS: Portable AP view of the chest demonstrates a normal-sized cardiac silhouette. Endotracheal tube is pr esent with distal tip measuring 3 cm from the nicole and nasogastric tube distal tip is within the st omach. Multiple EKG lines overlie the patient. Lungs are mildly underinflated with likely subsegmenta l atelectasis at the left lung base. There is mild biapical scar. No pneumothorax or pleural effusion is visualized. Bones demonstrate no acute finding. CONCLUSION: 1. Underinflation with mild subsegmental atelectasis at the left lung base. Otherwise, stable appear ance of the lungs. 2. Endotracheal tube is present with distal tip measuring approximately 3 cm from the nicole. Electronically signed by: Braulio Corona MD 05/25/2018 6:08 AM EDT
[2018-05-25] MEDS: Senna/Docusate Sodium 8.6/50 MG Tablet PO SCH ×2 (08:22→20:00)
[2018-05-25] MEDS: Aspirin 300 MG Supp RECTAL SCH (08:22)
[2018-05-25] MEDS: Famotidine PF Inj 20 MG/2 ML Vial IV.PUSH SCH ×2 (08:22→20:00)
--- NOTE | 2018-05-25 09:56 | P.PNCC ---
Subjective Subjective Remarks/Hospital Course: 05/23: HPI Narrative: 72-year-old female that presents to the ED for evaluation of possible stroke. Per patient and who provides most of the information less than 20 minutes before coming patient was complaining that she was having a "migraine" and did not feel right so she went to the bathroom. Apparently when she was in the bathroom she had trouble getting her pants and underwear off and could not do it on her own. She called for her for assistance in her 's are noted that she was having trouble speaking and she had a little difficulty using her hands. He took her here for get evaluated as there were concerned for stroke. Per patient she does not have any history of CVA in the past. She does have a history of kidney disease stage II as well as a history of high blood pressure. She does take Plavix. She denies any trauma or injury. Per symptoms started 20 minutes ago. She denies any history of this in the past. No recent travel. No allergies to medication. Patient herself is somewhat hard to assess as she does appear to have bad aphasia and dysarthria and has difficulty speaking. She does appear to be somewhat drowsy as well. Stroke alert called in ER, patient underwent CT head which was negative for bleed, , CTA brain and neuro eval by Dr. Travis and was administered TPA. Shortly after TPA administration she developed lip/ tongue swelling with difficulty breathing. Allergic reaction to TPA was suspected and patient was emergently intubated and placed on mech ventilation by ER physician. She did recieve Benadryl, IV Decadron 10mg IV, Pepcid and Epinephrine. Patient was accepted for admission by critical care and I evaluated patient in the ER. At that time she was sedated, orally intubated with significant tongue swelling noted. 05/24: Remains sedated, orally intubated on mech vent. Tongue swelling still present. 05/25: Remains intubated sedated. Tongue is still swollen and protruding but according to the RN last 24 hours there is improvement Objective Vital Signs / I&O: Vital Signs 05/24/18 10:00 05/24/18 12:00 05/24/18 12:34 Temperature 98.6 F Pulse Rate 65 65 Respiratory Rate 15 15 Blood Pressure 152/65 H Pulse Oximetry 100 100 05/24/18 14:00 05/24/18 15:06 05/24/18 16:00 Temperature 97.9 F Pulse Rate 61 58 L 56 L Respiratory Rate 15 15 Blood Pressure 131/60 Pulse Oximetry 100 100 05/24/18 18:00 05/24/18 20:00 05/24/18 20:33 Temperature 98.1 F Pulse Rate 63 66 61 Respiratory Rate 15 15 Blood Pressure 123/57 L Pulse Oximetry 100 100 05/24/18 23:48 05/25/18 00:00 05/25/18 03:19 Temperature 96.9 F L Pulse Rate 66 65 Respiratory Rate 15 15 19 Blood Pressure 143/65 H Pulse Oximetry 100 100 100 05/25/18 04:00 05/25/18 04:36 05/25/18 07:50 Temperature 98.1 F Pulse Rate 68 80 Respiratory Rate 15 17 16 Blood Pressure 139/62 Pulse Oximetry 100 100 100 05/25/18 08:00 Temperature 98.3 F Pulse Rate 77 Respiratory Rate 18 Blood Pressure 183/77 H Pulse Oximetry 100 Intake & Output 05/24/18 05/25/18 05/25/18 18:59 06:59 18:59 Intake Total 200 / 200 3708 / 3708 Output Total 550 / 550 800 / 800 Balance -350 / -350 2908 / 2908 Weight 72.2 kg Intake: IV 200 / 200 3200 / 3200 Diprivan 1000 mg/100 ml Inj 1, 200 / 200 200 / 200 000 mg In 100 ml @ 5 MCG/KG/MIN 2.073 mls/hr IV.CONT TITRATE PRN Rx#:[id number] NS Inj 1,000 ML @ 150 mls/hr IV 2000 / 1999 .CONT .Q6H40M COUNT INCLUDES THE [facility] Rx#:[id number] NS Inj 1,000 ML @ 1000 mls/hr 1000 / 1000 IV.SIG .Q1H COUNT INCLUDES THE [facility] Rx#:[id number] Tube Feeding 508 / 508 Output: Urine Amount (Catheter) 550 / 550 800 / 800 Indwelling Urethral Catheter 550 / 550 800 / 800 Result Diagrams: 05/25/18 04:16 05/25/18 04:16 Objective Remarks: GEN: 72-year-old lady who is intubated sedated HEENT: Sedated, orally intubated, no pallor, no icterus, tongue/ mucosa moist. Tongue swelling + with protrusion Neck: No JVD Chest/Pulm: on mech vent, good air entry bilaterally, no wheezing or crackles CVS: S1-S2 regular, no murmur GI/abdomen: soft, nontender, bowel sounds sluggish Extremities: warm bilaterally, no edema Neuro: Moving both upper and lower extremities. Follows commands x4 pupils bilaterally 3 mm reacting actively to light Assessment and Plan - Assessment and Plan Plan: 72-year-old female with: Ischemic stroke status post thrombolysis Hypersensitivity reaction to TPA with angioedema Acute respiratory failure on mechanical ventilation Hypertension Plan: Neuro: Sedation with propofol, fentanyl . Daily sedation medication. Follow neuro checks. Repeat head CT no bleed. Follow stroke protocol. Neurology consulted and has already evaluated patient. Antiplatelet therapy to be initiated when okay with neurology. MRI 05/24: Acute stroke left parietal lobe without hemorrhage or mass effect. Cardiovascular: IV hydration, watch for hypotension. Labetalol as needed to keep SBP below 220/ 120 Pulmonary: Continue mechanical ventilation. Patient to be kept intubated to the angioedema subsides. Continue Benadryl, Decadron, Pepcid. Bronchodilators as needed. GI/liver: Tube feeds with glucerna Bowel regimen Renal/: IV hydration, strict intake output, monitor and replete electrolytes, follow BUN /creatinine. ID: No indication for antibiotics at this time. WBC count elevation due to steroid Prophylaxis: Pepcid/SCDs. Subcu Lovenox when okay with neurology. Dr. garrison discussed current clinical status with patient's at bedside in the ER and they voiced understanding regarding plan of care and were agreeable. Condition critical Time spent on critical care excluding procedures 32 minutes
[2018-05-25] MEDS: Enoxaparin Inj 40 MG/0.4 ML Syringe SQ SCH (11:09)
--- NOTE | 2018-05-25 12:30 | ECG ---
Date Performed: 05/23/2018 Time Performed: 22:34:40 PTAGE: 72 years EKG: Sinus bradycardia Normal ECG except for rate Since PREVIOUS TRACING , no significant change noted PREVIOUS TRACIN05/23/2018 14.39 DOCTOR: Yulissa Kenny Interpretating Date/Time 05/25/2018 12:29:52
--- NOTE | 2018-05-25 14:37 | P.PNNEU ---
Subjective Subjective Comments: no new neurologic sx. Active Medications: Active Medications Acetaminophen (Tylenol) 650 mg PO Q6H PRN PRN Reason: PAIN 1-10 AND/OR FEVER >101F Acetaminophen (Tylenol) 650 mg PO Q6H PRN PRN Reason: PAIN 1-10 AND/OR FEVER >101F Al Hydroxide/Mg Hydroxide (Milk Of Magnesia Liq) 30 ml PO Q12H PRN PRN Reason: Mild Constipation Albuterol (Albuterol Neb (Prn)) 2.5 mg NEB Q2HR NEB PRN PRN Reason: SHORTNESS OF BREATH/WHEEZING Albuterol (Albuterol Neb (Prn)) 2.5 mg NEB Q4HR NEB PRN PRN Reason: SHORTNESS OF BREATH Albuterol (Duoneb Neb (Yanet)) 1 ampul NEB Q6HR NEB [facility] Last Admin: 05/25/18 07:49 Dose: 1 ampul Aspirin (Aspirin Supp) 300 mg RECTAL DAILY [facility] Last Admin: 05/25/18 08:22 Dose: 300 mg Atorvastatin Calcium (Lipitor) 40 mg PO HS YANET Bisacodyl (Dulcolax Supp) 10 mg RECTAL DAILY PRN PRN Reason: SEVERE CONSITIPATION Chlorhexidine Gluconate (Chlorhexidine 2% Cloth) 3 pack TOPICAL DAILY@0400 [facility] Stop: 05/29/18 03:59 Last Admin: 05/25/18 03:46 Dose: 3 pack Chlorhexidine Gluconate (Chlorhexidine 2% Cloth) 3 pack TOPICAL DAILY@0400 PRN PRN Reason: Extra cloth needed Stop: 05/29/18 03:59 Dexamethasone Sodium Phosphate (Decadron Inj) 4 mg IV.PUSH Q6HR [facility] Last Admin: 05/25/18 11:09 Dose: 4 mg Diphenhydramine HCl (Benadryl Inj) 25 mg IV.PUSH Q6H [facility] Last Admin: 05/25/18 11:09 Dose: 25 mg Enoxaparin Sodium (Lovenox Inj) 40 mg SQ DAILY [facility] Last Admin: 05/25/18 11:09 Dose: 40 mg Famotidine (Pepcid Pf Inj) 20 mg IV.PUSH Q12HR [facility] Last Admin: 05/25/18 08:22 Dose: 20 mg Propofol (Diprivan 1000 Mg/100 Ml Inj) 1,000 mg in 100 mls @ 2.073 mls/hr IV.CONT TITRATE PRN; Protocol PRN Reason: Per Protocol Last Admin: 05/25/18 11:08 Dose: 40 mcg/kg/min, 16.58 mls/hr Sodium Chloride (Ns Inj) 1,000 mls @ 150 mls/hr IV.CONT .Q6H40M [facility] Last Admin: 05/25/18 11:00 Dose: 150 mls/hr Lactulose (Lactulose Liq) 30 ml PO DAILY PRN PRN Reason: SEVERE CONSITIPATION Senna/Docusate Sodium (Cat-Colace) 1 tab PO BID [facility] Last Admin: 05/25/18 08:22 Dose: 1 tab Sennosides (Senokot) 17.2 mg PO Q12H PRN PRN Reason: Moderate Constipation Sodium Chloride (Ns Flush) 2 ml IV.FLUSH BID [facility] Last Admin: 05/25/18 08:22 Dose: 2 ml Sodium Chloride (Ns Flush) 2 ml IV.FLUSH PRN PRN PRN Reason: FLUSH AFTER USING IV ACCESS Sodium Chloride (Ns Flush) 2 ml IV.FLUSH BID [facility] Last Admin: 05/25/18 08:22 Dose: 2 ml Sodium Chloride (Ns Flush) 2 ml IV.FLUSH PRN PRN PRN Reason: FLUSH AFTER USING IV ACCESS Allergies/Adverse Reactions: Allergies Allergy/AdvReac Type Severity Reaction Status Date / Time alteplase [From Activase] Allergy Severe Swelling Verified 05/25/18 12:21 of Lip/Tongue/Throat Iodinated Contrast- Oral and Allergy Severe Swelling Verified 05/25/18 12:21 IV Dye of [Contrast] Lip/Tongue/Throat Physical Exam Vital signs: Vital Signs 05/24/18 15:06 05/24/18 16:00 05/24/18 18:00 Temperature 97.9 F Pulse Rate 58 L 56 L 63 Respiratory Rate 15 15 Blood Pressure 131/60 Pulse Oximetry 100 100 05/24/18 20:00 05/24/18 20:33 05/24/18 23:48 Temperature 98.1 F Pulse Rate 66 61 Respiratory Rate 15 15 15 Blood Pressure 123/57 L Pulse Oximetry 100 100 100 05/25/18 00:00 05/25/18 03:19 05/25/18 04:00 Temperature 96.9 F L 98.1 F Pulse Rate 66 65 68 Respiratory Rate 15 19 15 Blood Pressure 143/65 H 139/62 Pulse Oximetry 100 100 100 05/25/18 04:36 05/25/18 07:50 05/25/18 08:00 Temperature 98.3 F Pulse Rate 80 77 Respiratory Rate 17 16 18 Blood Pressure 183/77 H Pulse Oximetry 100 100 100 05/25/18 10:00 05/25/18 11:50 05/25/18 12:00 Temperature 99.2 F Pulse Rate 72 71 Respiratory Rate 15 16 Blood Pressure 146/67 H Pulse Oximetry 98 100 05/25/18 14:00 Temperature Pulse Rate 68 Respiratory Rate Blood Pressure Pulse Oximetry Intake & Output 05/24/18 05/25/18 05/25/18 18:59 06:59 18:59 Intake Total 200 / 200 3708 / 3708 1100 / 1100 Output Total 550 / 550 800 / 800 Balance -350 / -350 2908 / 2908 1100 / 1100 Weight 72.2 kg Intake: IV 200 / 200 3200 / 3200 1100 / 1100 Diprivan 1000 mg/100 ml Inj 1, 200 / 200 200 / 200 100 / 100 000 mg In 100 ml @ 5 MCG/KG/MIN 2.073 mls/hr IV.CONT TITRATE PRN Rx#:[id number] NS Inj 1,000 ML @ 150 mls/hr IV 2000 / 2000 1000 / 1000 .CONT .Q6H40M [facility] Rx#:[id number] NS Inj 1,000 ML @ 1000 mls/hr 1000 / 1000 IV.SIG .Q1H [facility] Rx#:[id number] Tube Feeding 508 / 508 Output: Urine Amount (Catheter) 550 / 550 800 / 800 Indwelling Urethral Catheter 550 / 550 800 / 800 - Routine Neurological Exam alert, follow commands CN intact MOTOR 4/5 RUE. 5/5 LUe - Urinary Catheter Management Indwelling Urethral Catheter Cath placed during this visit: yes Reason for continuing: Hourly intake/output Insertion date: 05/23/18 Insertion time: 14:34 Objective Radiology Results: MRI brain--acute cva left parietal. Laboratory Results - last 24 hr 05/24/18 05/24/18 05/24/18 19:00 19:00 19:00 WBC 17.2 H RBC 3.86 L Hgb 12.5 Hct 37.7 MCV 97.5 MCH 32.4 MCHC 33.2 RDW 13.3 Plt Count 280 MPV 8.7 Neut % (Auto) 95.7 H Lymph % (Auto) 2.0 L [place] % (Auto) 2.0 Eos % (Auto) 0.0 Baso % (Auto) 0.3 Neut # (Auto) 16.4 H Lymph # (Auto) 0.3 L [place] # (Auto) 0.4 Eos # (Auto) 0.0 Baso # (Auto) 0.1 WBC Differential . Differential Comment Auto diff final PT 11.2 INR 1.1 APTT 19.6 L D Sodium 140 Potassium 5.0 Chloride 109 H Carbon Dioxide 19.9 L Anion Gap 11 BUN 32 H Creatinine 1.64 H Estimated GFR 31 L Random Glucose 137 H Lactic Acid Calcium 9.2 Phosphorus 4.4 Magnesium 2.1 Total Bilirubin 0.3 AST 17 ALT 21 Alkaline Phosphatase 87 Total Protein 7.1 Albumin 3.6 05/24/18 05/25/18 05/25/18 19:00 04:16 04:16 WBC 18.3 H RBC 3.36 L Hgb 11.0 L Hct 32.4 L MCV 96.6 MCH 32.6 MCHC 33.8 RDW 13.5 Plt Count 244 MPV 8.7 Neut % (Auto) 95.7 H Lymph % (Auto) 1.9 L [place] % (Auto) 2.3 Eos % (Auto) 0.0 Baso % (Auto) 0.1 Neut # (Auto) 17.5 H Lymph # (Auto) 0.4 L [place] # (Auto) 0.4 Eos # (Auto) 0.0 Baso # (Auto) 0.0 WBC Differential . Differential Comment Auto diff final PT INR APTT Sodium 143 Potassium 4.7 Chloride 112 H Carbon Dioxide 17.4 L Anion Gap 14 BUN 34 H Creatinine 1.53 H Estimated GFR 33 L Random Glucose 156 H Lactic Acid 4.2 H* Calcium 8.3 L D Phosphorus Magnesium Total Bilirubin 0.2 AST 14 L ALT 20 Alkaline Phosphatase 73 Total Protein 6.0 L D Albumin 3.1 L Review/Management - Diagnosis (1) Acute CVA (cerebrovascular accident) Code(s): I63.9 - Cerebral infarction, unspecified Status: Acute Current Visit: Yes - Review/Management Plan: continue asa rehab medicine consult follow up echocardiogram
--- NOTE | 2018-05-25 17:43 | ECHRPT ---
Indication: cva/tia CONCLUSIONS Normal left ventricular size. Wall thickness is normal. The left ventricular systolic function is normal with an estimated ejection fraction in the range of 60-65%. Trace mitral valve regurgitation. Mitral annular calcification is present. Aortic valve sclerosis is present. [id number]-scxjclgh aortic valve regurgitation. BP: / HR: Rhythm: MEASUREMENTS (Male / Female) Normal Values Technical Quality: 2D ECHO LV Diastolic Diameter PLAX 4.2 cm 4.2 - 5.9 / 3.9 - 5.3 cm LV Systolic Diameter PLAX 3.0 cm IVS Diastolic Thickness 1.1 cm 0.6 - 1.0 / 0.6 - 0.9 cm LVPW Diastolic Thickness 1.1 cm 0.6 - 1.0 / 0.6 - 0.9 cm LV Relative Wall Thickness 0.5 RV Internal Dim ED PLAX 2.9 cm LVOT Diameter 2.0 cm LA Systolic Diameter LX 3.4 cm 3.0 - 4.0 / 2.7 - 3.8 cm M-MODE AV Cusp Separation MM 1.9 cm DOPPLER AV Peak Velocity 201.0 cm/s AV Peak Gradient 16.2 mmHg AV Mean Gradient 10.0 mmHg AV Velocity Time Integral 50.4 cm AI Peak Velocity 425.5 cm/s AI Peak Gradient 72.4 mmHg AI Pressure Half Time 368.5 ms LVOT Peak Velocity 193.0 cm/s LVOT Peak Gradient 14.9 mmHg AV Area Cont Eq pk 2.9 cm Mitral E Point Velocity 103.0 cm/s Mitral A Point Velocity 131.0 cm/s Mitral E to A Ratio 0.8 LV E' Lateral Velocity 9.3 cm/s Mitral E to LV E' Lateral Ratio 11.1 LV E' Septal Velocity 8.3 cm/s Mitral E to LV E' Septal Ratio 12.4 TR Peak Velocity 316.0 cm/s TR Peak Gradient 39.9 mmHg Right Atrial Pressure 10.0 mmHg Pulmonary Artery Systolic Pressu 49.9 mmHg Right Ventricular Systolic Press 49.9 mmHg PV Peak Velocity 143.0 cm/s PV Peak Gradient 8.2 mmHg FINDINGS LEFT VENTRICLE Normal left ventricular size. Wall thickness is normal. The left ventricular systolic function is normal with an estimated ejection fraction in the range of 60-65%. RIGHT VENTRICLE Normal right ventricular size and systolic function. LEFT ATRIUM The left atrial size is normal. RIGHT ATRIUM The right atrial size is normal. ATRIAL SEPTUM Normal atrial septal thickness without atrial level shunting by limited color doppler interrogation. AORTA The aortic root and proximal ascending aorta are normal in size on limited imaging. MITRAL VALVE Trace mitral valve regurgitation. Mitral annular calcification is present. AORTIC VALVE Aortic valve sclerosis is present. [id number] aortic valve regurgitation. TRICUSPID VALVE Structurally normal tricuspid valve. No tricuspid valve stenosis or regurgitation. PULMONARY VALVE No pulmonary valve regurgitation or stenosis. VESSELS The inferior vena cava is normal in size. PERICARDIUM No pericardial effusion. Austin Mitchell MD, FACC, [facility] [place] (Electronically Signed) Final Date:25 May 2018 17:42
[2018-05-26] MEDS: Chlorhexidine Gluconate 2% 1 Pack (2 Cloths) TOPICAL SCH (04:06)
[2018-05-26 05:15] LABS: Baso % (Auto) 0.3 % (0.0-2.0); Hematocrit 32.8 % (35.0-46.0); Hemoglobin 10.9 gm/dL (11.6-15.3); Lymph # (Auto) 0.3 th/mm3 (1.0-4.8); Lymph % (Auto) 1.5 % (9.0-44.0); Mean Corpuscular HGB Conc 33.4 % (32.0-36.0); Mean Corpuscular Volume 98.9 fL (80.0-100.0); Mean Platelet Volume 8.9 fL (7.0-11.0); Mono # (Auto) 0.5 th/mm3 (0.0-0.9); Mono % (Auto) 2.6 % (0.0-8.0); Neut # (Auto) 17.3 th/mm3 (1.8-7.7); Neut % (Auto) 95.6 % (16.0-70.0); Platelet Count 239 th/mm3 (150-450); Red Blood Count 3.31 mil/mm3 (4.00-5.30); Red Cell Distribution Width 13.8 % (11.6-17.2); White Blood Count 18.1 th/mm3 (4.0-11.0)
[2018-05-26 05:23] LABS: Alanine Aminotransferase 23 U/L (10-53); Anion Gap 9 meq/L (5-15); Aspartate Aminotransferase 17 U/L (15-37); Blood Urea Nitrogen 38 mg/dL (7-18); Calcium 8.3 mg/dL (8.5-10.1); Carbon Dioxide 22.8 meq/L (21.0-32.0); Chloride 116 meq/L (98-107); Glomerular Filtration Rate 37 mL/min (>89); Glucose,Random 168 mg/dL (74-106); Potassium 5.3 meq/L (3.5-5.1); Sodium 148 meq/L (136-145)
[2018-05-26 05:25] LABS: Alkaline Phosphatase 94 U/L (45-117); Total Protein 6.1 g/dL (6.4-8.2)
--- NOTE | 2018-05-26 05:28 | XR ---
EXAM DATE: 05/26/2018 5:08 AM EDT AGE/SEX: 72 years / Female INDICATIONS: Respiratory distress. CLINICAL DATA: This is the patient's subsequent encounter. Patient reports that signs and symptoms h ave been present for 4 - 6 days and indicates a pain score of Nonresponsive. MEDICAL/SURGICAL HISTORY: . Cardiovascular disease. Hypertension. None. [place] [facility] [place]. . FINDINGS: Portable AP view of the chest demonstrates a normal-sized cardiac silhouette. EKG lines overlie the p atient. ETT and nasogastric tube remain present. Lungs are underinflated with mild subsegmental atele ctasis at the left lung base. No effusion, consolidation, or pneumothorax is seen. There is stable bi apical scar. CONCLUSION: Stable chest x-ray with mild atelectasis at the left lung base. Otherwise, no acute finding is seen. Electronically signed by: Braulio Corona MD 05/26/2018 5:27 AM EDT
[2018-05-26] MEDS: Propofol 1000 mg/100 ml Inj 1,000 MG/100 ML BOTTLE IV.CONT PRN (05:54)
[2018-05-26] MEDS: Sod Chloride 0.9% Inj 1,000 ML IV.CONT SCH ×2 (06:08→18:39)
[2018-05-26] MEDS: Enoxaparin Inj 40 MG/0.4 ML Syringe SQ SCH (08:58)
[2018-05-26] MEDS: Famotidine PF Inj 20 MG/2 ML Vial IV.PUSH SCH ×2 (08:58→21:18)
[2018-05-26] MEDS: Senna/Docusate Sodium 8.6/50 MG Tablet PO SCH ×3 (08:59→22:20)
[2018-05-26] MEDS: Aspirin 300 MG Supp RECTAL SCH (08:59)
--- NOTE | 2018-05-26 10:58 | P.PNCC ---
Subjective Subjective Remarks/Hospital Course: 05/23: HPI Narrative: 72-year-old female that presents to the ED for evaluation of possible stroke. Per patient and who provides most of the information less than 20 minutes before coming patient was complaining that she was having a "migraine" and did not feel right so she went to the bathroom. Apparently when she was in the bathroom she had trouble getting her pants and underwear off and could not do it on her own. She called for her for assistance in her 's are noted that she was having trouble speaking and she had a little difficulty using her hands. He took her here for get evaluated as there were concerned for stroke. Per patient she does not have any history of CVA in the past. She does have a history of kidney disease stage II as well as a history of high blood pressure. She does take Plavix. She denies any trauma or injury. Per symptoms started 20 minutes ago. She denies any history of this in the past. No recent travel. No allergies to medication. Patient herself is somewhat hard to assess as she does appear to have bad aphasia and dysarthria and has difficulty speaking. She does appear to be somewhat drowsy as well. Stroke alert called in ER, patient underwent CT head which was negative for bleed, , CTA brain and neuro eval by Dr. Travis and was administered TPA. Shortly after TPA administration she developed lip/ tongue swelling with difficulty breathing. Allergic reaction to TPA was suspected and patient was emergently intubated and placed on mech ventilation by ER physician. She did recieve Benadryl, IV Decadron 10mg IV, Pepcid and Epinephrine. Patient was accepted for admission by critical care and I evaluated patient in the ER. At that time she was sedated, orally intubated with significant tongue swelling noted. 05/24: Remains sedated, orally intubated on mech vent. Tongue swelling still present. 05/25: Remains intubated sedated. Tongue is still swollen and protruding but according to the RN last 24 hours there is improvement 05/26: Sedated, arousable, orally intubated on mechanical ventilation. Tongue swelling significantly improved now. Objective Vital Signs / I&O: Vital Signs 05/25/18 11:50 05/25/18 12:00 05/25/18 14:00 Temperature 99.2 F Pulse Rate 71 68 Respiratory Rate 15 16 Blood Pressure 146/67 H Pulse Oximetry 98 100 05/25/18 15:51 05/25/18 16:00 05/25/18 18:00 Temperature 99.5 F Pulse Rate 72 74 75 Respiratory Rate 15 16 Blood Pressure 156/68 H Pulse Oximetry 100 100 05/25/18 19:39 05/25/18 20:00 05/25/18 22:00 Temperature 98.5 F Pulse Rate 66 72 68 Respiratory Rate 15 22 Blood Pressure 155/70 H Pulse Oximetry 100 99 05/26/18 00:00 05/26/18 02:00 05/26/18 03:50 Temperature 98.4 F Pulse Rate 64 60 65 Respiratory Rate 17 17 Blood Pressure 160/71 H Pulse Oximetry 96 98 05/26/18 04:00 05/26/18 06:00 05/26/18 07:54 Temperature 98.9 F Pulse Rate 66 73 Respiratory Rate 18 16 Blood Pressure 168/72 H Pulse Oximetry 100 100 05/26/18 08:00 05/26/18 08:49 05/26/18 10:51 Temperature 98.2 F Pulse Rate 67 66 Respiratory Rate 17 16 Blood Pressure 202/84 H Pulse Oximetry 100 95 Intake & Output 05/25/18 05/26/18 05/26/18 18:59 06:59 18:59 Intake Total 2807 / 2807 1799 / 1799 Output Total 1250 / 1250 1350 / 1350 Balance 1557 / 1557 449 / 449 Weight 75.9 kg Intake: IV 2200 / 2200 1150 / 1150 Diprivan 1000 mg/100 ml Inj 1, 200 / 200 200 / 200 000 mg In 100 ml @ 5 MCG/KG/MIN 2.073 mls/hr IV.CONT TITRATE PRN Rx#:[id number] NS Inj 1,000 ML @ 75 mls/hr IV. 1999 / 1999 950 / 950 CONT .[id number] [facility] Rx#:[id number] Tube Feeding 607 / 607 649 / 649 Output: Urine Amount (Catheter) 1250 / 1250 1350 / 1350 Indwelling Urethral Catheter 1250 / 1250 1350 / 1350 Other: Date of Last Bowel Movement 05/25/18 05/26/18 05/26/18 # Bowel Movements 1 5 Result Diagrams: 05/26/18 04:29 05/26/18 04:29 Imaging: Chest X-Ray 05/23/18 14:00 CONCLUSION: Negative examination. Head CT 05/23/18 14:00 CONCLUSION: 1. Negative CT Head non contrast. Report was called by [Dr. Brown at 2:15 PM on May 23, [address] Sarkar. ] Head CTA 05/23/18 14:00 CONCLUSION: 1. No high-grade stenosis or intracranial aneurysm or occlusion intracranially. 2. In the neck there is moderate to severe calcific plaque at the left carotid bulb, and severe calcific plaque at the origin of the right internal carotid artery. Neck CTA 05/23/18 14:00 CONCLUSION: 1. Atherosclerotic plaquing involving bilateral ICAs, which appear to be soft plaque without any significant stenosis. Head CT 05/24/18 00:00 CONCLUSION: Unremarkable study and not changed. Head MRI 05/24/18 00:00 CONCLUSION: 1. Acute stroke left parietal lobe without hemorrhage or mass effect. Chest X-Ray 05/25/18 05:00 CONCLUSION: 1. Underinflation with mild subsegmental atelectasis at the left lung base. Otherwise, stable appearance of the lungs. 2. Endotracheal tube is present with distal tip measuring approximately 3 cm from the nicole. Chest X-Ray 05/26/18 06:00 CONCLUSION: Stable chest x-ray with mild atelectasis at the left lung base. Otherwise, no acute finding is seen. Objective Remarks: GEN: 72-year-old lady who is intubated sedated HEENT: Sedated, orally intubated, no pallor, no icterus, tongue/ mucosa moist. Tongue swelling seems to have improved and appears completely resolved Neck: No JVD Chest/Pulm: on mech vent, good air entry bilaterally, no wheezing or crackles CVS: S1-S2 regular, no murmur GI/abdomen: soft, nontender, bowel sounds sluggish Extremities: warm bilaterally, no edema Neuro: Moving both upper and lower extremities. Follows commands x4 pupils bilaterally 3 mm reacting actively to light Assessment and Plan - Assessment and Plan Plan: 72-year-old female with: Ischemic stroke status post thrombolysis Hypersensitivity reaction to TPA with angioedema Acute respiratory failure on mechanical ventilation Hypertension Plan: Neuro: Sedation with propofol, fentanyl . Daily sedation vacation. Follow neuro checks. Repeat head CT no bleed. Follow stroke protocol. Neurology consulted and has already evaluated patient. Antiplatelet therapy to be initiated when okay with neurology. MRI 05/24: Acute stroke left parietal lobe without hemorrhage or mass effect. Cardiovascular: IV hydration, watch for hypotension. Labetalol as needed to keep SBP below 180/ 100 Pulmonary: On mechanical ventilation. CPAP trials and if tolerated will extubate. Continue Benadryl, Decadron, Pepcid. Bronchodilators as needed. GI/liver: Tube feeds with glucerna Bowel regimen Renal/: IV hydration, strict intake output, monitor and replete electrolytes, follow BUN /creatinine. ID: No indication for antibiotics at this time. WBC count elevation due to steroid Prophylaxis: Pepcid/SCDs. Subcu Lovenox when okay with neurology. Dr. garrison discussed current clinical status with patient's at bedside in the ER and they voiced understanding regarding plan of care and were agreeable. Condition critical Time spent on critical care excluding procedures 30 minutes
[2018-05-26] MEDS: Aspirin 325 MG Tablet PO SCH (13:05)
--- NOTE | 2018-05-26 18:51 | P.PNNEU ---
Subjective Subjective Comments: no new c/o. extubated, moving right side well speech is improved Active Medications: Active Medications Acetaminophen (Tylenol) 650 mg PO Q6H PRN PRN Reason: PAIN 1-10 AND/OR FEVER >101F Acetaminophen (Tylenol) 650 mg PO Q6H PRN PRN Reason: PAIN 1-10 AND/OR FEVER >101F Al Hydroxide/Mg Hydroxide (Milk Of Magnesia Liq) 30 ml PO Q12H PRN PRN Reason: Mild Constipation Albuterol (Albuterol Neb (Prn)) 2.5 mg NEB Q2HR NEB PRN PRN Reason: SHORTNESS OF BREATH/WHEEZING Albuterol (Albuterol Neb (Prn)) 2.5 mg NEB Q4HR NEB PRN PRN Reason: SHORTNESS OF BREATH Albuterol (Duoneb Neb ([facility])) 1 ampul NEB Q6HR NEB [facility] Last Admin: 05/26/18 15:15 Dose: 1 ampul Aspirin (Aspirin) 325 mg PO DAILY [facility] Atorvastatin Calcium (Lipitor) 40 mg PO HS [facility] Last Admin: 05/25/18 20:00 Dose: 40 mg Bisacodyl (Dulcolax Supp) 10 mg RECTAL DAILY PRN PRN Reason: SEVERE CONSITIPATION Chlorhexidine Gluconate (Chlorhexidine 2% Cloth) 3 pack TOPICAL DAILY@0400 [facility] Stop: 05/29/18 03:59 Last Admin: 05/26/18 04:06 Dose: 3 pack Chlorhexidine Gluconate (Chlorhexidine 2% Cloth) 3 pack TOPICAL DAILY@0400 PRN PRN Reason: Extra cloth needed Stop: 05/29/18 03:59 Dexamethasone Sodium Phosphate (Decadron Inj) 4 mg IV.PUSH Q6HR [facility] Last Admin: 05/26/18 18:40 Dose: 4 mg Diphenhydramine HCl (Benadryl Inj) 25 mg IV.PUSH Q6H [facility] Last Admin: 05/26/18 18:40 Dose: Not Given Enoxaparin Sodium (Lovenox Inj) 40 mg SQ DAILY [facility] Last Admin: 05/26/18 08:58 Dose: 40 mg Famotidine (Pepcid Pf Inj) 10 mg IV.PUSH Q12HR [facility] Last Admin: 05/26/18 08:58 Dose: 10 mg Propofol (Diprivan 1000 Mg/100 Ml Inj) 1,000 mg in 100 mls @ 2.073 mls/hr IV.CONT TITRATE PRN; Protocol PRN Reason: Per Protocol Last Titration: 05/26/18 09:40 Dose: 0 mcg/kg/min, 0 mls/hr Sodium Chloride (Ns Inj) 1,000 mls @ 75 mls/hr IV.CONT .[id number] [facility] Last Admin: 05/26/18 18:39 Dose: Not Given Lactulose (Lactulose Liq) 30 ml PO DAILY PRN PRN Reason: SEVERE CONSITIPATION Senna/Docusate Sodium (Cat-Colace) 1 tab PO BID [facility] Last Admin: 05/26/18 08:59 Dose: 1 tab Sennosides (Senokot) 17.2 mg PO Q12H PRN PRN Reason: Moderate Constipation Sodium Chloride (Ns Flush) 2 ml IV.FLUSH BID [facility] Last Admin: 05/26/18 08:59 Dose: 2 ml Sodium Chloride (Ns Flush) 2 ml IV.FLUSH PRN PRN PRN Reason: FLUSH AFTER USING IV ACCESS Sodium Chloride (Ns Flush) 2 ml IV.FLUSH BID [facility] Last Admin: 05/26/18 09:00 Dose: 2 ml Sodium Chloride (Ns Flush) 2 ml IV.FLUSH PRN PRN PRN Reason: FLUSH AFTER USING IV ACCESS Allergies/Adverse Reactions: Allergies Allergy/AdvReac Type Severity Reaction Status Date / Time alteplase [From Activase] Allergy Severe Swelling Verified 05/25/18 12:21 of Lip/Tongue/Throat Iodinated Contrast- Oral and Allergy Severe Swelling Verified 05/25/18 12:21 IV Dye of [Contrast] Lip/Tongue/Throat Physical Exam Vital signs: Vital Signs 05/25/18 19:39 05/25/18 20:00 05/25/18 22:00 Temperature 98.5 F Pulse Rate 66 72 68 Respiratory Rate 15 22 Blood Pressure 155/70 H Pulse Oximetry 100 99 05/26/18 00:00 05/26/18 02:00 05/26/18 03:50 Temperature 98.4 F Pulse Rate 64 60 65 Respiratory Rate 17 17 Blood Pressure 160/71 H Pulse Oximetry 96 98 05/26/18 04:00 05/26/18 06:00 05/26/18 07:54 Temperature 98.9 F Pulse Rate 66 73 Respiratory Rate 18 16 Blood Pressure 168/72 H Pulse Oximetry 100 100 05/26/18 08:00 05/26/18 08:49 05/26/18 10:00 Temperature 98.2 F Pulse Rate 67 66 76 Respiratory Rate 17 16 Blood Pressure 202/84 H Pulse Oximetry 100 05/26/18 10:51 05/26/18 15:17 Temperature Pulse Rate 68 Respiratory Rate 20 Blood Pressure Pulse Oximetry 95 Intake & Output 05/25/18 05/26/18 05/26/18 18:59 06:59 18:59 Intake Total 2807 / 2807 1799 / 1799 Output Total 1250 / 1250 1350 / 1350 Balance 1557 / 1557 449 / 449 Weight 75.9 kg Intake: IV 2200 / 2200 1150 / 1150 Diprivan 1000 mg/100 ml Inj 1, 200 / 200 200 / 200 000 mg In 100 ml @ 5 MCG/KG/MIN 2.073 mls/hr IV.CONT TITRATE PRN Rx#:[id number] NS Inj 1,000 ML @ 75 mls/hr IV. 1999 / 1999 950 / 950 CONT .[id number] [facility] Rx#:[id number] Tube Feeding 607 / 607 649 / 649 Output: Urine Amount (Catheter) 1250 / 1250 1350 / 1350 Indwelling Urethral Catheter 1250 / 1250 1350 / 1350 Other: Date of Last Bowel Movement 05/25/18 05/26/18 05/26/18 # Bowel Movements 1 5 - Routine Neurological Exam alert, oriented. speech fluent, comprehension is normal. CN intact MOTOR 5/5 BUe and BLE - Urinary Catheter Management Indwelling Urethral Catheter Cath placed during this visit: yes Reason for continuing: Hourly intake/output Insertion date: 05/23/18 Insertion time: 14:34 Objective Laboratory Results - last 24 hr 05/25/18 05/26/18 05/26/18 23:53 04:29 04:29 WBC 18.1 H RBC 3.31 L Hgb 10.9 L Hct 32.8 L MCV 98.9 MCH 33.0 MCHC 33.4 RDW 13.8 Plt Count 239 MPV 8.9 Neut % (Auto) 95.6 H Lymph % (Auto) 1.5 L [place] % (Auto) 2.6 Eos % (Auto) 0.0 Baso % (Auto) 0.3 Neut # (Auto) 17.3 H Lymph # (Auto) 0.3 L [place] # (Auto) 0.5 Eos # (Auto) 0.0 Baso # (Auto) 0.0 WBC Differential . Differential Comment Auto diff final Sodium 148 H Potassium 5.3 H Chloride 116 H Carbon Dioxide 22.8 Anion Gap 9 BUN 38 H Creatinine 1.38 H Estimated GFR 37 L POC Glucose 173 H Random Glucose 168 H Calcium 8.3 L Total Bilirubin 0.2 AST 17 ALT 23 Alkaline Phosphatase 94 Total Protein 6.1 L Albumin 3.0 L Review/Management - Diagnosis (1) Acute CVA (cerebrovascular accident) Code(s): I63.9 - Cerebral infarction, unspecified Status: Acute Current Visit: Yes - Review/Management Plan: continue asa add plavix 75 mg daily
[2018-05-26] MEDS ORDERED: Labetalol HCl Inj 100 MG/20 ML Vial IV.PUSH PRN (20:21)
[2018-05-26] MEDS ORDERED: amLODIPine 10 MG Tablet PO ONE (20:30)
[2018-05-27] MEDS: Chlorhexidine Gluconate 2% 1 Pack (2 Cloths) TOPICAL SCH (03:28)
[2018-05-27 05:15] LABS: Baso % (Auto) 0.1 % (0.0-2.0); Eos % (Auto) 0.1 % (0.0-4.0); Hematocrit 32.4 % (35.0-46.0); Lymph # (Auto) 0.3 th/mm3 (1.0-4.8); Lymph % (Auto) 2.1 % (9.0-44.0); Mean Corpuscular HGB Conc 33.8 % (32.0-36.0); Mean Corpuscular Volume 97.7 fL (80.0-100.0); Mean Platelet Volume 8.7 fL (7.0-11.0); Mono # (Auto) 0.3 th/mm3 (0.0-0.9); Mono % (Auto) 2.5 % (0.0-8.0); Neut # (Auto) 12.7 th/mm3 (1.8-7.7); Neut % (Auto) 95.2 % (16.0-70.0); Platelet Count 220 th/mm3 (150-450); Red Blood Count 3.32 mil/mm3 (4.00-5.30); Red Cell Distribution Width 13.5 % (11.6-17.2); White Blood Count 13.3 th/mm3 (4.0-11.0)
[2018-05-27] MEDS: Sod Chloride 0.9% Inj 1,000 ML IV.CONT SCH ×3 (06:49→20:59)
--- NOTE | 2018-05-27 08:43 | P.PNIM ---
Subjective Interval history: f/u; CVA in no acute distress. denies pain, focal weakness. Physical Exam Vital signs: Vital Signs 05/26/18 08:49 05/26/18 10:00 05/26/18 10:51 Temperature Pulse Rate 66 76 Respiratory Rate 16 Blood Pressure Pulse Oximetry 95 05/26/18 12:00 05/26/18 14:00 05/26/18 15:17 Temperature 98.0 F Pulse Rate 72 68 68 Respiratory Rate 16 20 Blood Pressure 140/69 Pulse Oximetry 95 05/26/18 16:00 05/26/18 18:00 05/26/18 20:00 Temperature 98.6 F 97.9 F Pulse Rate 72 72 76 Respiratory Rate 18 18 Blood Pressure 189/76 H 176/80 H Pulse Oximetry 94 L 93 L 05/26/18 20:07 05/26/18 22:00 05/27/18 00:00 Temperature 98.7 F Pulse Rate 65 91 H 62 Respiratory Rate 16 18 Blood Pressure 166/68 H Pulse Oximetry 94 L 92 L 05/27/18 02:00 05/27/18 03:46 05/27/18 04:00 Temperature 98.0 F Pulse Rate 57 L 60 56 L Respiratory Rate 16 18 Blood Pressure 180/76 H Pulse Oximetry 94 L 05/27/18 06:00 05/27/18 06:35 05/27/18 08:29 Temperature Pulse Rate 65 68 Respiratory Rate 27 H Blood Pressure Pulse Oximetry 88 L 92 L Intake & Output 05/26/18 05/27/18 05/27/18 18:59 06:59 18:59 Intake Total 1420 / 1420 Output Total 2149 / 2149 1200 / 1200 Balance -2150 / -2150 220 / 220 Weight 74.2 kg Intake: IV 1000 / 1000 NS Inj 1,000 ML @ 75 mls/hr IV. 1000 / 1000 CONT .[id number] [facility] Rx#:[id number] Oral 420 / 420 Output: Urine Amount (Catheter) 2149 1200 / 1200 Indwelling Urethral Catheter 2149 1200 / 1200 Other: Date of Last Bowel Movement 05/26/18 05/27/18 # Bowel Movements 1 - Constitutional no acute distress - Routine Respiratory Exam Present: CTA bilaterally - Routine Cardiovascular Exam Present: RRR - Routine Abdominal Exam Present: soft - Routine Extremities Exam Comments: no pedal edema. - Routine Neurological Exam Present: alert, oriented X3, moving all extremities - Urinary Catheter Management Indwelling Urethral Catheter Cath placed during this visit: yes Reason for continuing: Hourly intake/output Insertion date: 05/23/18 Insertion time: 14:34 Results - Labs CBC & Chem 7: 05/27/18 04:40 05/26/18 04:29 Laboratory Results - last 24 hr 05/27/18 04:40 WBC 13.3 H RBC 3.32 L Hgb 11.0 L Hct 32.4 L MCV 97.7 MCH 33.0 MCHC 33.8 RDW 13.5 Plt Count 220 MPV 8.7 Neut % (Auto) 95.2 H Lymph % (Auto) 2.1 L [place] % (Auto) 2.5 Eos % (Auto) 0.1 Baso % (Auto) 0.1 Neut # (Auto) 12.7 H Lymph # (Auto) 0.3 L [place] # (Auto) 0.3 Eos # (Auto) 0.0 Baso # (Auto) 0.0 WBC Differential . Differential Comment Auto diff final Assessment and Plan - Plan Ischemic stroke status post thrombolysis -echo with EF 60% - continue aspirin, plavix, statin - neurology following. -continue PT Hypersensitivity reaction to TPA with angioedema- has much improved. - continue Benadryl Acute respiratory failure on mechanical ventilation - s/p intubation/ extubation - continue on oxygen as needed/ neb treatment Hypertension - continue Amlodipine - will consider adding Hydralazine if BP remains elevated. CKD - seems to be at her baseline; will monitor. for transfer to floor. Discharge Planning: HHC vs rehab- dc planning; within the next 24-48 hrs if stable.
[2018-05-27] MEDS: Senna/Docusate Sodium 8.6/50 MG Tablet PO SCH ×2 (08:56→20:58)
[2018-05-27] MEDS: Famotidine PF Inj 20 MG/2 ML Vial IV.PUSH SCH ×2 (08:56→20:58)
[2018-05-27] MEDS: Aspirin 325 MG Tablet PO SCH (08:56)
[2018-05-27] MEDS: Enoxaparin Inj 40 MG/0.4 ML Syringe SQ SCH (08:56)
[2018-05-27] MEDS: amLODIPine 10 MG Tablet PO SCH (08:56)
[2018-05-27 15:16] LABS: Calcium 8.5 mg/dL (8.5-10.1); Carbon Dioxide 25.2 meq/L (21.0-32.0); Potassium 4.9 meq/L (3.5-5.1)
[2018-05-28] MEDS: Chlorhexidine Gluconate 2% 1 Pack (2 Cloths) TOPICAL SCH (03:47)
[2018-05-28] MEDS: Aspirin 325 MG Tablet PO SCH (09:12)
[2018-05-28] MEDS: amLODIPine 10 MG Tablet PO SCH (09:13)
[2018-05-28] MEDS: Enoxaparin Inj 40 MG/0.4 ML Syringe SQ SCH (09:13)
[2018-05-28] MEDS: Senna/Docusate Sodium 8.6/50 MG Tablet PO SCH ×2 (09:14→21:05)
[2018-05-28] MEDS: Famotidine PF Inj 20 MG/2 ML Vial IV.PUSH SCH ×2 (09:14→21:04)
[2018-05-28] MEDS: Sod Chloride 0.9% Inj 1,000 ML IV.CONT SCH (11:32)
--- NOTE | 2018-05-28 11:45 | P.PNIM ---
Subjective Interval history: f/u; CVA in no distress. still with mild slurred speech. otherwise no new complaints. Physical Exam Vital signs: Vital Signs 05/27/18 12:00 05/27/18 16:00 05/27/18 16:04 Temperature 98 F 98.2 F Pulse Rate 65 67 66 Respiratory Rate 16 14 18 Blood Pressure 155/69 H 188/79 H Pulse Oximetry 97 97 05/27/18 18:35 05/27/18 20:00 05/27/18 20:56 Temperature 97.2 F L Pulse Rate 67 75 Respiratory Rate 18 Blood Pressure 191/80 H 173/74 H Pulse Oximetry 95 96 05/28/18 00:00 05/28/18 04:00 05/28/18 08:00 Temperature 97.5 F L 97.3 F L 97.7 F Pulse Rate 61 63 58 L Respiratory Rate 18 18 16 Blood Pressure 164/70 H 166/72 H 174/79 H Pulse Oximetry 96 94 L 92 L Intake & Output 05/27/18 05/28/18 05/28/18 18:59 06:59 18:59 Intake Total 1360 / 1360 1000 / 1000 1000 / 1000 Output Total 900 / 900 Balance 460 / 460 1000 / 1000 1000 / 1000 Weight 69.4 kg Intake: IV 1000 / 1000 1000 / 1000 1000 / 1000 NS Inj 1,000 ML @ 75 mls/hr IV. 1000 / 1000 1000 / 1000 1000 / 1000 CONT .[id number] [facility] Rx#:[id number] Oral 360 / 360 Output: Urine Amount (Catheter) 900 / 900 Indwelling Urethral Catheter 900 / 900 Other: # Voids 1 Date of Last Bowel Movement 05/27/18 05/27/18 05/28/18 - Constitutional no acute distress - Routine Respiratory Exam Present: CTA bilaterally - Routine Cardiovascular Exam Present: RRR - Routine Abdominal Exam Present: soft - Routine Extremities Exam Comments: no pedal edema. - Routine Neurological Exam Present: alert, oriented X3 - Urinary Catheter Management Indwelling Urethral Catheter Cath placed during this visit: yes Reason for continuing: Not indwelling catheter Insertion date: 05/23/18 Insertion time: 14:34 Results - Labs CBC & Chem 7: 05/27/18 04:40 05/27/18 14:35 Laboratory Results - last 24 hr 05/27/18 14:35 Sodium 145 Potassium 4.9 Chloride 111 H Carbon Dioxide 25.2 Anion Gap 9 BUN 39 H Creatinine 1.40 H Estimated GFR 37 L Random Glucose 164 H Calcium 8.5 Assessment and Plan - Plan Ischemic stroke status post thrombolysis -echo with EF 60% - continue aspirin, plavix, statin - neurology following. -continue PT Hypersensitivity reaction to TPA with angioedema- has much improved. - continue Benadryl Acute respiratory failure on mechanical ventilation - s/p intubation/ extubation - continue on oxygen as needed/ neb treatment Hypertension - continue Amlodipine - will continue to monitor. CKD - seems to be at her baseline; will monitor. Discharge Planning: HHC vs rehab- dc planning; within the next 24-48 hrs if stable.
[2018-05-29] MEDS ORDERED: hydrALAZINE 25 MG Tablet PO ONE (00:10)
[2018-05-29] MEDS: Sod Chloride 0.9% Inj 1,000 ML IV.CONT SCH ×2 (01:45→12:20)
[2018-05-29] MEDS: Aspirin 325 MG Tablet PO SCH (08:53)
[2018-05-29] MEDS: Famotidine PF Inj 20 MG/2 ML Vial IV.PUSH SCH ×2 (08:54→21:28)
[2018-05-29] MEDS: Senna/Docusate Sodium 8.6/50 MG Tablet PO SCH ×2 (08:54→21:29)
[2018-05-29] MEDS: Enoxaparin Inj 40 MG/0.4 ML Syringe SQ SCH (08:54)
[2018-05-29] MEDS: amLODIPine 10 MG Tablet PO SCH (08:54)
--- NOTE | 2018-05-29 09:12 | P.PNIM ---
Subjective Interval history: f/u; CVA in no acute distress. looks and feels better today. BP trend noted. no new complaints. d/w the RN. Physical Exam Vital signs: Vital Signs 05/28/18 11:44 05/28/18 12:00 05/28/18 16:00 Temperature 97.7 F 97.6 F Pulse Rate 63 55 L Respiratory Rate 18 18 Blood Pressure 176/70 H 165/72 H Pulse Oximetry 93 L 96 96 05/28/18 20:00 05/28/18 21:46 05/29/18 00:00 Temperature 97.3 F L 97.7 F Pulse Rate 62 57 L Respiratory Rate 18 18 Blood Pressure 177/71 H 195/86 H Pulse Oximetry 96 93 L 95 05/29/18 04:00 Temperature 97.4 F L Pulse Rate 55 L Respiratory Rate 18 Blood Pressure 180/77 H Pulse Oximetry 94 L Intake & Output 05/28/18 05/29/18 05/29/18 18:59 06:59 18:59 Intake Total 1000 / 1000 Output Total Balance 999 / 999 Weight 66.7 kg Intake: IV 1000 / 1000 NS Inj 1,000 ML @ 75 mls/hr IV. 1000 / 1000 CONT .[id number] [facility] Rx#:[id number] Output: Urine Other: # Voids 1 Date of Last Bowel Movement 05/28/18 05/28/18 # Bowel Movements 1 - Constitutional no acute distress - Routine Respiratory Exam Present: CTA bilaterally - Routine Cardiovascular Exam Present: RRR - Routine Abdominal Exam Present: soft - Routine Extremities Exam Comments: no pedal edema. - Routine Neurological Exam Present: alert, oriented X3 - Urinary Catheter Management Indwelling Urethral Catheter Cath placed during this visit: yes Reason for continuing: Not indwelling catheter Insertion date: 05/23/18 Insertion time: 14:34 Results - Labs CBC & Chem 7: 05/27/18 04:40 05/27/18 14:35 Assessment and Plan - Plan Ischemic stroke status post thrombolysis -echo with EF 60% - continue aspirin, plavix, statin - neurology following. -continue PT Hypersensitivity reaction to TPA with angioedema- has much improved. - continue Benadryl - will stop IV steroid and switch to po. Acute respiratory failure on mechanical ventilation- resolved. - s/p intubation/ extubation - continue on oxygen as needed/ neb treatment Hypertension - continue Amlodipine - will start on low dose Hydralazine - will continue to monitor. CKD - seems to be at her baseline; will monitor. Discharge Planning: HHC vs rehab- dc planning; within the next 24 hrs if stable with better BP control.
--- NOTE | 2018-05-29 19:06 | P.PNNEU ---
Subjective Subjective Comments: no new neurologic sx. She feels her speech is improving. right sided strength better EXAM alert. Speech is slightly nonfluent. Comprehension is normal CN intact MOTOR 5/5 BUE, mild decrease fine motor skills right hand IMP left hemisphere cva, stable s/p iv TPA Ok from neurology standpoint to discharge when ok with primary service. Please schedule follow up in my office 2-3 weeks Active Medications: Active Medications Acetaminophen (Tylenol) 650 mg PO Q6H PRN PRN Reason: PAIN 1-10 AND/OR FEVER >101F Acetaminophen (Tylenol) 650 mg PO Q6H PRN PRN Reason: PAIN 1-10 AND/OR FEVER >101F Al Hydroxide/Mg Hydroxide (Milk Of Magnesia Liq) 30 ml PO Q12H PRN PRN Reason: Mild Constipation Albuterol (Albuterol Neb (Prn)) 2.5 mg NEB Q2HR NEB PRN PRN Reason: SHORTNESS OF BREATH/WHEEZING Albuterol (Albuterol Neb (Prn)) 2.5 mg NEB Q4HR NEB PRN PRN Reason: SHORTNESS OF BREATH Amlodipine Besylate (Norvasc) 10 mg PO DAILY [facility] Last Admin: 05/29/18 08:54 Dose: 10 mg Aspirin (Aspirin) 325 mg PO DAILY [facility] Last Admin: 05/29/18 08:53 Dose: Not Given Atorvastatin Calcium (Lipitor) 40 mg PO HS [facility] Last Admin: 05/28/18 21:04 Dose: 40 mg Bisacodyl (Dulcolax Supp) 10 mg RECTAL DAILY PRN PRN Reason: SEVERE CONSITIPATION Clopidogrel Bisulfate (Plavix) 75 mg PO DAILY [facility] Last Admin: 05/29/18 08:54 Dose: 75 mg Diphenhydramine HCl (Benadryl Inj) 25 mg IV.PUSH Q6H [facility] Last Admin: 05/29/18 18:20 Dose: 25 mg Enoxaparin Sodium (Lovenox Inj) 40 mg SQ DAILY [facility] Last Admin: 05/29/18 08:54 Dose: 40 mg Famotidine (Pepcid Pf Inj) 10 mg IV.PUSH Q12HR [facility] Last Admin: 05/29/18 08:54 Dose: 10 mg Hydralazine HCl (Apresoline) 10 mg PO BID [facility] Propofol (Diprivan 1000 Mg/100 Ml Inj) 1,000 mg in 100 mls @ 2.073 mls/hr IV.CONT TITRATE PRN; Protocol PRN Reason: Per Protocol Last Titration: 05/26/18 09:40 Dose: 0 mcg/kg/min, 0 mls/hr Sodium Chloride (Ns Inj) 1,000 mls @ 40 mls/hr IV.CONT .Q24H [facility] Last Admin: 05/29/18 12:20 Dose: Not Given Labetalol HCl (Trandate Inj) 10 mg IV.PUSH Q4H PRN PRN Reason: SYS BP GREATER THAN 180 [facility] Last Admin: 05/26/18 22:35 Dose: 10 mg Lactulose (Lactulose Liq) 30 ml PO DAILY PRN PRN Reason: SEVERE CONSITIPATION Prednisone (Deltasone) 20 mg PO DAILY [facility] Senna/Docusate Sodium (Cat-Colace) 1 tab PO BID [facility] Last Admin: 05/29/18 08:54 Dose: 1 tab Sennosides (Senokot) 17.2 mg PO Q12H PRN PRN Reason: Moderate Constipation Sodium Chloride (Ns Flush) 2 ml IV.FLUSH BID [facility] Last Admin: 05/29/18 08:55 Dose: 2 ml Sodium Chloride (Ns Flush) 2 ml IV.FLUSH PRN PRN PRN Reason: FLUSH AFTER USING IV ACCESS Allergies/Adverse Reactions: Allergies Allergy/AdvReac Type Severity Reaction Status Date / Time alteplase [From Activase] Allergy Severe Swelling Verified 05/25/18 12:21 of Lip/Tongue/Throat Iodinated Contrast- Oral and Allergy Severe Swelling Verified 05/25/18 12:21 IV Dye of [Contrast] Lip/Tongue/Throat Physical Exam Vital signs: Vital Signs 05/28/18 20:00 05/28/18 21:46 05/29/18 00:00 Temperature 97.3 F L 97.7 F Pulse Rate 62 57 L Respiratory Rate 18 18 Blood Pressure 177/71 H 195/86 H Pulse Oximetry 96 93 L 95 05/29/18 04:00 05/29/18 08:00 05/29/18 10:45 Temperature 97.4 F L 98 F Pulse Rate 55 L 51 L Respiratory Rate 18 14 Blood Pressure 180/77 H 198/84 H Pulse Oximetry 94 L 95 95 05/29/18 11:17 05/29/18 12:00 05/29/18 16:00 Temperature 97.9 F 99 F Pulse Rate 63 68 Respiratory Rate 16 18 18 Blood Pressure 140/65 144/66 H Pulse Oximetry 94 L 94 L 05/29/18 17:47 Temperature Pulse Rate Respiratory Rate 18 Blood Pressure Pulse Oximetry Intake & Output 05/29/18 05/29/18 05/30/18 06:59 18:59 06:59 Weight 66.7 kg Other: # Voids 1 Date of Last Bowel Movement 05/28/18 05/29/18 - Urinary Catheter Management Indwelling Urethral Catheter Cath placed during this visit: yes Reason for continuing: Not indwelling catheter Insertion date: 05/23/18 Insertion time: 14:34 Review/Management - Diagnosis (1) Acute CVA (cerebrovascular accident) Code(s): I63.9 - Cerebral infarction, unspecified Status: Acute Current Visit: Yes - Review/Management Plan: continue asa add plavix 75 mg daily
[2018-05-29] MEDS: hydrALAZINE 10 MG Tablet PO SCH (21:29)
[2018-05-30] MEDS ORDERED: hydrALAZINE 10 MG Tablet PO SCH (04:45)
[2018-05-30] MEDS: Sod Chloride 0.9% Inj 1,000 ML IV.CONT SCH (05:48)
[2018-05-30] MEDS: hydrALAZINE 10 MG Tablet PO SCH ×2 (08:34→22:17)
[2018-05-30] MEDS: predniSONE 20 MG Tablet PO SCH (08:34)
[2018-05-30] MEDS: Famotidine PF Inj 20 MG/2 ML Vial IV.PUSH SCH ×2 (08:35→22:17)
[2018-05-30] MEDS: amLODIPine 10 MG Tablet PO SCH (08:35)
[2018-05-30] MEDS: Enoxaparin Inj 40 MG/0.4 ML Syringe SQ SCH (08:36)
[2018-05-30] MEDS: Senna/Docusate Sodium 8.6/50 MG Tablet PO SCH ×2 (08:37→22:17)
[2018-05-30] MEDS: Aspirin 325 MG Tablet PO SCH (08:37)
--- NOTE | 2018-05-30 10:28 | P.PNIM ---
Subjective Interval history: f/u; CVA in no acute distress. says that she's improving although still with some slurred speech. BP trend noted. Physical Exam Vital signs: Vital Signs 05/29/18 10:45 05/29/18 11:17 05/29/18 12:00 Temperature 97.9 F Pulse Rate 63 Respiratory Rate 16 18 Blood Pressure 140/65 Pulse Oximetry 95 94 L 05/29/18 16:00 05/29/18 17:47 05/29/18 20:00 Temperature 99 F 97.5 F L Pulse Rate 68 59 L Respiratory Rate 18 18 18 Blood Pressure 144/66 H 162/71 H Pulse Oximetry 94 L 95 05/30/18 00:00 05/30/18 00:38 05/30/18 04:00 Temperature 97.3 F L 97.4 F L Pulse Rate 58 L 54 L Respiratory Rate 18 18 Blood Pressure 167/75 H 194/81 H Pulse Oximetry 94 L 95 94 L 05/30/18 06:54 05/30/18 08:00 Temperature 97.6 F Pulse Rate 59 L Respiratory Rate 20 Blood Pressure 190/81 H 153/64 H Pulse Oximetry 96 Intake & Output 05/29/18 05/30/18 05/30/18 18:59 06:59 18:59 Intake Total 1080 / 1080 1000 / 1000 Balance 1080 / 1080 1000 / 1000 Weight 65.4 kg Intake: IV 1000 / 1000 NS Inj 1,000 ML @ 40 mls/hr IV. 1000 / 1000 CONT .Q24H [facility] Rx#:[id number] Oral 1080 / 1080 Other: # Voids 4 1 Date of Last Bowel Movement 05/29/18 05/29/18 # Bowel Movements 2 - Constitutional no acute distress - Routine Respiratory Exam Present: CTA bilaterally - Routine Cardiovascular Exam Present: RRR - Routine Abdominal Exam Present: soft - Routine Extremities Exam Comments: no pedal edema. - Routine Neurological Exam Present: alert - Urinary Catheter Management Indwelling Urethral Catheter Cath placed during this visit: yes Reason for continuing: Not indwelling catheter Insertion date: 05/23/18 Insertion time: 14:34 Results - Labs CBC & Chem 7: 05/27/18 04:40 05/27/18 14:35 Assessment and Plan - Plan Ischemic stroke status post thrombolysis -echo with EF 60% - continue aspirin, plavix, statin - neurology follow-up appreciated and cleared for discharge. -continue PT Hypersensitivity reaction to TPA with angioedema- has much improved. - continue Benadryl - will taper off oral steroids. Acute respiratory failure on mechanical ventilation- resolved. - s/p intubation/ extubation - continue on oxygen as needed/ neb treatment Hypertension - continue Amlodipine - started on low dose Hydralazine - stop IV fluid - will continue to monitor. CKD - seems to be at her baseline; will monitor. Discharge Planning: HHC vs rehab- dc planning; within the next 24 hrs if stable with better BP control.
[2018-05-31] MEDS: Enoxaparin Inj 40 MG/0.4 ML Syringe SQ SCH (09:36)
[2018-05-31] MEDS: predniSONE 20 MG Tablet PO SCH (09:36)
[2018-05-31] MEDS: hydrALAZINE 10 MG Tablet PO SCH ×3 (09:37→17:35)
[2018-05-31] MEDS: Famotidine PF Inj 20 MG/2 ML Vial IV.PUSH SCH ×2 (09:37→22:14)
[2018-05-31] MEDS: Aspirin 325 MG Tablet PO SCH (09:37)
[2018-05-31] MEDS: Senna/Docusate Sodium 8.6/50 MG Tablet PO SCH ×2 (09:37→22:15)
[2018-05-31] MEDS: amLODIPine 10 MG Tablet PO SCH (09:37)
--- NOTE | 2018-05-31 11:01 | P.PNIM ---
Subjective Interval history: in no acute distress. walking in the room. BP trend noted. d/w the RN. Physical Exam Vital signs: Vital Signs 05/30/18 12:00 05/30/18 15:49 05/30/18 16:00 Temperature 97.9 F 97.8 F Pulse Rate 59 L 66 Respiratory Rate 20 20 Blood Pressure 154/67 H 139/74 Pulse Oximetry 95 96 96 05/30/18 22:20 05/31/18 00:45 05/31/18 03:45 Temperature 98 F 98 F 97.2 F L Pulse Rate 68 67 56 L Respiratory Rate 22 20 16 Blood Pressure 120/60 118/65 180/75 H Pulse Oximetry 98 97 96 05/31/18 08:00 Temperature 97.4 F L Pulse Rate 58 L Respiratory Rate 16 Blood Pressure 191/86 H Pulse Oximetry 95 Intake & Output 05/30/18 05/31/18 05/31/18 18:59 06:59 18:59 Intake Total 1360 / 1360 1340 / 1340 Balance 1360 / 1360 1340 / 1340 Weight 66 kg Intake: IV 1000 / 1000 NS Inj 1,000 ML @ 40 mls/hr IV. 1000 / 1000 CONT .Q24H [facility] Rx#:[id number] Oral 360 / 360 1340 / 1340 Other: # Voids 5 2 Date of Last Bowel Movement 05/29/18 05/29/18 # Bowel Movements 1 0 - Constitutional no acute distress - Routine Respiratory Exam Present: CTA bilaterally - Routine Cardiovascular Exam Present: RRR - Routine Abdominal Exam Present: soft - Routine Extremities Exam Comments: no pedal edema. - Routine Neurological Exam Present: alert, oriented X3 - Urinary Catheter Management Indwelling Urethral Catheter Cath placed during this visit: yes Reason for continuing: Not indwelling catheter Insertion date: 05/23/18 Insertion time: 14:34 Results - Labs CBC & Chem 7: 05/27/18 04:40 05/27/18 14:35 Assessment and Plan - Plan Ischemic stroke status post thrombolysis -echo with EF 60% - continue aspirin, plavix, statin - neurology follow-up appreciated and cleared for discharge. -continue PT Hypersensitivity reaction to TPA with angioedema- has much improved. - continue Benadryl - will taper off oral steroids. Acute respiratory failure on mechanical ventilation- resolved. - s/p intubation/ extubation - continue on oxygen as needed/ neb treatment Hypertension - continue Amlodipine - increase Hydralazine - will continue to monitor. CKD - seems to be at her baseline; will monitor. Discharge Planning: SNF vs [facility]. dc planning; within the next 24 hrs if stable with better BP control.
[2018-06-01] MEDS: Enoxaparin Inj 40 MG/0.4 ML Syringe SQ SCH (08:38)
[2018-06-01] MEDS: amLODIPine 10 MG Tablet PO SCH (08:38)
[2018-06-01] MEDS: Aspirin 325 MG Tablet PO SCH (08:38)
[2018-06-01] MEDS: hydrALAZINE 10 MG Tablet PO SCH ×3 (08:38→17:04)
[2018-06-01] MEDS: predniSONE 10 MG Tablet PO SCH (08:38)
[2018-06-01] MEDS: Senna/Docusate Sodium 8.6/50 MG Tablet PO SCH ×2 (08:38→21:29)
[2018-06-01] MEDS: Famotidine PF Inj 20 MG/2 ML Vial IV.PUSH SCH ×2 (08:39→21:29)
--- NOTE | 2018-06-01 09:22 | P.PNIM ---
Subjective Interval history: f/u; CVA in no acute distress. no new complaints. BP trend noted. d/w the RN. Physical Exam Vital signs: Vital Signs 05/31/18 12:00 05/31/18 13:39 05/31/18 16:00 Temperature 97.5 F L 98.4 F Pulse Rate 73 63 Respiratory Rate 16 16 Blood Pressure 169/74 H 144/64 H Pulse Oximetry 97 95 94 L 05/31/18 21:40 06/01/18 00:00 06/01/18 05:15 Temperature 97.7 F 98 F 98 F Pulse Rate 62 64 66 Respiratory Rate 17 19 19 Blood Pressure 137/64 135/65 144/67 H Pulse Oximetry 96 97 96 Intake & Output 05/31/18 06/01/18 06/01/18 18:59 06:59 18:59 Intake Total 1620 / 1620 Balance 1620 / 1620 Weight 66 kg Intake: Oral 1620 / 1620 Other: # Voids 2 Date of Last Bowel Movement 05/29/18 # Bowel Movements 0 - Constitutional no acute distress - Routine Respiratory Exam Present: CTA bilaterally - Routine Cardiovascular Exam Present: RRR - Routine Abdominal Exam Present: soft - Routine Extremities Exam Comments: no pedal edema. - Routine Neurological Exam Present: alert, oriented X3 - Urinary Catheter Management Indwelling Urethral Catheter Cath placed during this visit: yes Reason for continuing: Not indwelling catheter Insertion date: 05/23/18 Insertion time: 14:34 Results - Labs CBC & Chem 7: 05/27/18 04:40 05/27/18 14:35 Assessment and Plan - Plan Ischemic stroke status post thrombolysis -echo with EF 60% - continue aspirin, plavix, statin - neurology follow-up appreciated and cleared for discharge. -continue PT Hypersensitivity reaction to TPA with angioedema- has much improved. - continue Benadryl - will stop steroids. Acute respiratory failure on mechanical ventilation- resolved. - s/p intubation/ extubation - continue on oxygen as needed/ neb treatment Hypertension- BP overall improving slowly. - continue Amlodipine - continue Hydralazine - will continue to monitor. Hematuria/ Dysuria- check UA to r/o UTI CKD - seems to be at her baseline; will monitor. Discharge Planning: dc home with [facility]- within the next 24hrs- if hematuria improves- pending UA. see med list. f/u; pcp and neurology. d/w the patient and case management. time spent 35 min.
--- NOTE | 2018-06-01 09:26 | P.DS ---
Date of admission: 05/23/18 16:51 Primary care physician: Eladio Caruso MD Brief History from admission: HPI Narrative: 72-year-old female that presents to the ED for evaluation of possible stroke. Per patient and who provides most of the information less than 20 minutes before coming patient was complaining that she was having a "migraine" and did not feel right so she went to the bathroom. Apparently when she was in the bathroom she had trouble getting her pants and underwear off and could not do it on her own. She called for her for assistance in her 's are noted that she was having trouble speaking and she had a little difficulty using her hands. He took her here for get evaluated as there were concerned for stroke. Per patient she does not have any history of CVA in the past. She does have a history of kidney disease stage II as well as a history of high blood pressure. She does take Plavix. She denies any trauma or injury. Per symptoms started 20 minutes ago. She denies any history of this in the past. No recent travel. No allergies to medication. Patient herself is somewhat hard to assess as she does appear to have bad aphasia and dysarthria and has difficulty speaking. She does appear to be somewhat drowsy as well. Stroke alert called in ER, patient underwent CT head which was negative for bleed, , CTA brain and neuro eval by Dr. Travis and was administered TPA. Shortly after TPA administration she developed lip/ tongue swelling with difficulty breathing. Allergic reaction to TPA was suspected and patient was emergently intubated and placed on [facility] ventilation by ER physician. She did recieve Benadryl, IV Decadron 10mg IV, Pepcid and Epinephrine. Patient was accepted for admission by critical care and I evaluated patient in the ER. At that time she was sedated, orally intubated with significant tongue swelling noted. DS: Medications - Discharge Medications Prescriptions: amlodipine [Norvasc] 10 mg PO DAILY 30 Days #30 tab atorvastatin 40 mg PO HS 30 Days #30 tab clopidogrel 75 mg PO DAILY 30 Days #30 tab DS: Summary Hospital Course: patient was admitted with CVA/ acute respiratory failure- she was intubated and received TPA but showed allergic reaction for which she received IV and later on steroids; this was tapered off during her hospital stay.she was extubated and transferred to floor- she was seen by neurology/ PT/ST. she will continue with aspirin, plvix, statin and BP control with outpatient f/u with her pcp and neurology. her BP meds were adjusted slowly considering her recent CVA. - Time Spent with Patient Total time spent providing and/or coordinating discharge services: Greater than 30 minutes (35 min.) - Quality: VTE Deep Vein Thrombosis/Pulmonary Embolism Present on Admission: No Exam Vital signs: Vital Signs 05/31/18 12:00 05/31/18 13:39 05/31/18 16:00 Temperature 97.5 F L 98.4 F Pulse Rate 73 63 Respiratory Rate 16 16 Blood Pressure 169/74 H 144/64 H Pulse Oximetry 97 95 94 L 05/31/18 21:40 06/01/18 00:00 06/01/18 05:15 Temperature 97.7 F 98 F 98 F Pulse Rate 62 64 66 Respiratory Rate 17 19 19 Blood Pressure 137/64 135/65 144/67 H Pulse Oximetry 96 97 96 Intake & Output 05/31/18 06/01/18 06/01/18 18:59 06:59 18:59 Intake Total 1620 / 1620 Balance 1620 / 1620 Weight 66 kg Intake: Oral 1620 / 1620 Other: # Voids 2 Date of Last Bowel Movement 05/29/18 # Bowel Movements 0 - Constitutional no acute distress - Routine Respiratory Exam Present: CTA bilaterally - Routine Cardiovascular Exam Present: RRR - Routine Abdominal Exam Present: soft - Routine Extremities Exam Comments: no pedal edema. - Routine Neurological Exam Present: alert, oriented X3 Results Procedures completed during hospitalization: intubation. - Impressions ITS Impressions Head CTA 05/23/18 14:00 CONCLUSION: 1. No high-grade stenosis or intracranial aneurysm or occlusion intracranially. 2. In the neck there is moderate to severe calcific plaque at the left carotid bulb, and severe calcific plaque at the origin of the right internal carotid artery. Neck CTA 05/23/18 14:00 CONCLUSION: 1. Atherosclerotic plaquing involving bilateral ICAs, which appear to be soft plaque without any significant stenosis. Head CT 05/24/18 00:00 CONCLUSION: Unremarkable study and not changed. Head MRI 05/24/18 00:00 CONCLUSION: 1. Acute stroke left parietal lobe without hemorrhage or mass effect. Chest X-Ray 05/26/18 06:00 CONCLUSION: Stable chest x-ray with mild atelectasis at the left lung base. Otherwise, no acute finding is seen. Discharge Plan - Physicians Team Primary Care Provider: Eladio Caruso Attending Provider: Lesley Santos Other Providers: Edil Travis MD, PhD ; Sachin Rosa MD ; Kirsten Curtis
--- NOTE | 2018-06-01 10:26 | P.DCO ---
- Physical Therapy Order: Evaluate and treat - Occupational Therapy Order: Evaluate and treat - Certification I have seen patient Matt Melchor on 06/01/18. My clinical findings support the need for the requested home health care services because: Limited mobility due to disease progression I certify that my clinical findings support that this patient is homebound because: Unsteady gait/balance
[2018-06-01 13:33] LABS: Bacteria,Urine Many /hpf; Bilirubin,Urine Negative (Negative); Color,Urine Yellow (Yellw/Straw); Glucose,Urine (UA) 50 mg/dL (Negative); Hyaline Casts,Urine 5 /lpf (0-3); Leukocyte Esterase,Urine Large (Negative); Mucus,Urine Few /lpf (Occasional); Nitrite,Urine Negative (Negative); Specific Gravity,Urine 1.018 (1.002-1.035)
[2018-06-01 13:37] LABS: Clarity,Urine Hazy (Clear)
[2018-06-02 09:12] LABS: Baso % (Auto) 0.2 % (0.0-2.0); Eos # (Auto) 0.2 th/mm3 (0.0-0.4); Eos % (Auto) 2.1 % (0.0-4.0); Hematocrit 33.2 % (35.0-46.0); Hemoglobin 11.5 gm/dL (11.6-15.3); Lymph # (Auto) 1.6 th/mm3 (1.0-4.8); Lymph % (Auto) 17.4 % (9.0-44.0); Mean Corpuscular HGB Conc 34.5 % (32.0-36.0); Mean Corpuscular Hemoglobin 32.8 pg (27.0-34.0); Mean Corpuscular Volume 95.1 fL (80.0-100.0); Mean Platelet Volume 7.9 fL (7.0-11.0); Mono # (Auto) 0.6 th/mm3 (0.0-0.9); Mono % (Auto) 6.4 % (0.0-8.0); Neut % (Auto) 73.9 % (16.0-70.0); Platelet Count 260 th/mm3 (150-450); Red Blood Count 3.49 mil/mm3 (4.00-5.30); Red Cell Distribution Width 12.9 % (11.6-17.2); White Blood Count 9.4 th/mm3 (4.0-11.0)
[2018-06-02] MEDS: Aspirin 325 MG Tablet PO SCH (09:31)
[2018-06-02] MEDS: hydrALAZINE 10 MG Tablet PO SCH (09:31)
[2018-06-02] MEDS: Senna/Docusate Sodium 8.6/50 MG Tablet PO SCH (09:32)
[2018-06-02] MEDS: Famotidine PF Inj 20 MG/2 ML Vial IV.PUSH SCH (09:32)
[2018-06-02] MEDS: predniSONE 10 MG Tablet PO SCH (09:32)
[2018-06-02] MEDS: amLODIPine 10 MG Tablet PO SCH (09:32)
[2018-06-02 09:36] LABS: Calcium 8.6 mg/dL (8.5-10.1); Carbon Dioxide 23.3 meq/L (21.0-32.0); Potassium 3.9 meq/L (3.5-5.1)
--- NOTE | 2018-06-02 10:11 | P.PN ---
Subjective Interval history: Follow-up of patient with ischemic CVA. Patient seen and examined. Patient states that she has had no hematuria since yesterday. She states her dysuria has resolved. She reports good urinary output. She denies any new medical complaints. She is ready to go home. Physical Exam Vital signs: Vital Signs 06/01/18 11:37 06/01/18 12:00 06/01/18 16:00 Temperature 98.5 F 97.8 F Pulse Rate 64 69 Respiratory Rate 20 20 Blood Pressure 140/64 166/66 H Pulse Oximetry 96 95 96 06/01/18 20:00 06/02/18 00:00 06/02/18 04:00 Temperature 97.6 F 97.6 F 97.6 F Pulse Rate 61 60 54 L Respiratory Rate 18 18 18 Blood Pressure 172/76 H 181/77 H 188/77 H Pulse Oximetry 96 97 96 06/02/18 08:00 Temperature 97.5 F L Pulse Rate 49 L Respiratory Rate 20 Blood Pressure 157/71 H Pulse Oximetry 96 Intake & Output 06/01/18 06/02/18 06/02/18 18:59 06:59 18:59 Intake Total 940 / 940 Balance 940 / 940 Weight 66.2 kg Intake: IV 100 / 100 Rocephin Inj 1,000 MG In NS Inj 100 / 100 100 ML @ 200 mls/hr IV.SIG Q24H [facility] Rx#:[id number] Oral 840 / 840 Other: # Voids 4 2 Date of Last Bowel Movement 05/30/18 06/02/18 Narrative: GENERAL: Well-developed well-nourished female in no acute distress. Awake alert. SKIN: Warm and dry. HEAD: Atraumatic. Normocephalic. EYES: Pupils equal and round. No scleral icterus. No injection or drainage. ENT: No nasal bleeding or discharge. Mucous membranes pink and moist. NECK: Trachea midline. CARDIOVASCULAR: Regular rate and rhythm. RESPIRATORY: No accessory muscle use. Clear to auscultation. Breath sounds equal bilaterally. GASTROINTESTINAL: Abdomen soft, non-tender, nondistended. MUSCULOSKELETAL: Extremities without clubbing, cyanosis, or edema. No obvious deformities. NEUROLOGICAL: Awake and alert. No obvious cranial nerve deficits. Motor grossly within normal limits. Able to move all extremities spontaneously. Normal speech. PSYCHIATRIC: Appropriate mood and affect; insight and judgment normal. - Urinary Catheter Management Indwelling Urethral Catheter Cath placed during this visit: yes Reason for continuing: Not indwelling catheter Insertion date: 05/23/18 Insertion time: 14:34 Results - Labs CBC & Chem 7: 06/02/18 06:09 06/02/18 06:09 Laboratory Results - last 24 hr 06/01/18 06/02/18 06/02/18 12:16 06:09 06:09 WBC 9.4 RBC 3.49 L Hgb 11.5 L Hct 33.2 L MCV 95.1 MCH 32.8 MCHC 34.5 RDW 12.9 Plt Count 260 MPV 7.9 Neut % (Auto) 73.9 H Lymph % (Auto) 17.4 [place] % (Auto) 6.4 Eos % (Auto) 2.1 Baso % (Auto) 0.2 Neut # (Auto) 7.0 Lymph # (Auto) 1.6 [place] # (Auto) 0.6 Eos # (Auto) 0.2 Baso # (Auto) 0.0 WBC Differential . Differential Comment Auto diff final Sodium 140 Potassium 3.9 Chloride 108 H Carbon Dioxide 23.3 Anion Gap 9 BUN 32 H Creatinine 1.21 H Estimated GFR 43 L Random Glucose 103 Calcium 8.6 Urine Color Yellow Urine Clarity Hazy H Urine pH 6.0 Ur Specific [place] 1.018 Urine Protein 100 H Urine Glucose (UA) 50 Urine Ketones Negative Urine Occult Blood Large H Urine Nitrate Negative Urine Bilirubin Negative Urine Urobilinogen Less than 2 Ur Leukocyte Esterase Large H Urine RBC Urine WBC Urine WBC Clumps Few H Urine Bacteria Many H Hyaline Casts 5 Urine Mucus Few H Micro UA Comment Culture indicated Ur Microscopic Review Not Reportable Urine Culture Comments Culture indicated - Procedures intubation. Assessment and Plan - Plan Ischemic stroke status post thrombolysis -echo with EF 60% - continue aspirin, plavix, statin - neurology follow-up appreciated and cleared for discharge. - continue PT Hypersensitivity reaction to TPA with angioedema- has much improved. - continue Benadryl - steroids discontineud Acute respiratory failure on mechanical ventilation- resolved. - s/p intubation/ extubation - continue on oxygen as needed/ neb treatment Hypertension- BP overall improving slowly. - continue Amlodipine - continue Hydralazine - will continue to monitor. Hematuria/ Dysuria - UA suggestive of UTI. Started on Rocephin. - no hematuria x 24hours - change to oral Ceftin CKD creatinine improving - seems to be at her baseline; will monitor. Code Status: FULL Discussed Condition With: patient, nursing staff, Dr. Ibarra Discharge Planning: Cleared for discharge with [facility]
== END 2018-06-02 12:06 | disposition home health service (06) ==
LOC: NEPE 13:51 → NEDA 16:51 → N03 17:21 → N05 05-27 16:51
PROVIDERS: ADMIT Family Medicine; ATTEND Family Medicine